=== PATIENT | female | born 1950 | race Caucasian/White ===

== ENCOUNTER 2018-04-30 12:56 | Inpatient (IN) ==
[2018-04-30] MEDS ORDERED: NS 500 ML IV ONE (13:18)
--- NOTE | 2018-04-30 13:56 | Diag Imaging Result Doc PS360 ---
EXAM: CHEST-2 VIEWS HISTORY: fever TECHNIQUE: Chest two views COMPARISON: 01/02/2018 FINDINGS: Poor inspiratory effort. The heart is not enlarged. No change in the right jugular portacatheter. No pleural effusions. Mild vascular prominence. No consolidation. IMPRESSION: No definite pneumonia. Follow-up films may be beneficial. Electronically signed by Pérez Alexander 04/30/2018 1:54 PM
[2018-04-30 14:34] LABS: BASO# 0.03 X1000 (0.0-0.2); BASO% 0.6 % (0.0-0.8); EOS# 0.07 X1000 (0.0-0.7); EOS% 1.4 % (0.0-10.0); HEMOGLOBIN 10.9 g/dL (12.0-16.0); IMM GRAN# 0.04 X1000 (0.0-0.04); IMM GRAN% 0.8 % (0.0-0.5); LYMPH% 10.1 % (20.5-51.1); MCH 27.9 PG (27-31); MCHC 30.3 g/dL (33-37); MCV 92.3 FL (81-99); MONO# 0.19 X1000 (0.11-0.59); MONO% 3.8 % (1.7-9.3); MPV 12.5 FL (7.4-10.4); NEUT# 4.12 X1000 (1.4-6.5); NEUT% 83.3 % (42.2-75.2); PLT 70 X1000 (130-400); RDW 25.6 % (11.5-14.5); WBC 4.95 X1000 (4.8-10.8)
[2018-04-30 14:45] LABS: ALB/GLOB RATIO 0.9; ALBUMIN 2.9 g/dL (3.5-5.0); CALCIUM 8.8 mg/dL (8.8-10.2); CREATININE 1.9 mg/dL (0.5-0.9); POTASSIUM 4.9 mmol/L (3.5-5.1); TOTAL BILIRUBIN 1.83 mg/dL (0.20-1.00)
[2018-04-30] MEDS ORDERED: AMBIEN PO PRN (15:21)
[2018-04-30] MEDS: ROCEPHIN 1 GM in NS 50 ML IV SCH (16:30)
[2018-04-30] MEDS: HEPARIN SUBQ SCH (16:33)
[2018-04-30] MEDS ORDERED: NEO-SYNEPHRINE IV ONE (17:38)
[2018-04-30] MEDS ORDERED: ALBUMIN 25% IV ONE (17:49)
[2018-04-30] MEDS: NEO-SYNEPHRINE 50 MG in NS 250 ML IV SCH (19:04)
--- NOTE | 2018-04-30 19:21 | HISTORY AND PHYSICAL ---
CHIEF COMPLAINT: Fever, chills, and lethargy. HISTORY OF PRESENT ILLNESS: Mrs. Barillas is a 67-year-old white female with a complex past medical history including type 2 diabetes with cirrhosis due to nonalcoholic steatohepatitis. She also has a history of hypertension, hyperlipidemia, hypothyroidism, and metastatic breast cancer. Her brought her to the emergency room this morning after she had a temperature of 101 degrees at home along with a chill during the night. She was also somewhat lethargic and slow to wake up when he got her ready to come to the emergency room. He says that yesterday and generally for the last several weeks, she has done very well at home and was wide awake, alert, and helped write and address [employer] cards yesterday. He has not noticed any other symptoms other than a fever and chills. She has had no shortness of breath, cough, or sputum production. She denies abdominal pain, nausea or vomiting. Her appetite has been good until yesterday, but greatly reduced today. She was diagnosed with cirrhosis and chronic liver disease nearly 2 years ago. She has had several upper GI endoscopies by Dr. Nichols and he has banded multiple esophageal varices on each occasion. She has a history of intermittent confusion and disorientation, felt to be hepatic encephalopathy and has taken daily lactulose and Xifaxan. Her states she has been very compliant with these recently. She has been hospitalized twice this year with left ankle fracture in December and approximately a month later, she had increasing ascites and was admitted for paracentesis. PAST MEDICAL HISTORY: 1. She underwent left mastectomy in 2009 followed by chemotherapy and radiation for positive lymph nodes. Several years later, she had a recurrence of her mediastinal and neck nodes. She is now followed by Dr. Michelet Gomez in [place], and after completing a course of Taxol and Herceptin, she remains on every 3 week Herceptin maintenance infusions. She is due for an infusion next . Her most recent PET scan was in late summer of this year and apparently showed no evidence of recurrent disease. 2. She has a history of hypertension controlled with medication. 3. Elevated cholesterol. 4. Type 2 diabetes mellitus with hemoglobin A1c that vary between 7.5 and 8.5. ALLERGIES: Penicillin causes a rash. Morphine makes her encephalopathy worse. She also has had skin reactions to certain adhesives. HOME MEDICATIONS: 1. Spironolactone 100 mg once daily. 2. Lasix 40 mg daily. 3. Levothyroxine 75 mcg daily. 4. Vitamin D3 5000 units daily. 5. Duloxetine 60 mg daily. 6. Folic acid 1 mg daily. 7. Glimepiride 1 mg daily. 8. Ambien 5 mg nightly p.r.n. for sleep. 9. Nexium 40 mg daily. 10.Lactulose 15-30 mL daily. 11.Invokana 50 mg in the morning. 12.Gabapentin 600 mg b.i.d. 13.Janumet mg tablets 1 twice a day. PAST SURGICAL HISTORY: Positive for 1. Cholecystectomy. 2. Total hysterectomy. 3. Bilateral mastectomies. 4. Lumbar spine surgery. 5. Left anterior thoracotomy with excision of benign lymph node in 2012. SOCIAL HISTORY: She is and lives with her . She does not use alcohol or tobacco. REVIEW OF SYSTEMS: General: No headache, night sweats or weight loss. HEENT: No recent complaints. Respiratory: No cough, shortness of breath, sputum production, or hemoptysis. Cardiovascular: No recent chest pain. No history of angina or ischemic heart disease. No history of congestive heart failure or valvular heart disease. GI: No recent nausea, vomiting, diarrhea, or constipation. She usually has 1-2 soft bowel movements daily with her lactulose. No melena or bright red blood per rectum. No hematemesis. : No dysuria. Neurologic: No history of strokes or seizures. Musculoskeletal: Mild stable hip and knee aches from time to time. PHYSICAL EXAMINATION: VITAL SIGNS: Temperature 99.3, pulse 122, respirations 16, blood pressure 89/59, O2 saturation 94% on room air. GENERAL: Lethargic, slightly pale, elderly woman who arouses to stimuli and responds appropriately to questions but falls back asleep when unstimulated. HEENT: Pupils are equal, round and reactive to light. Extraocular movements are intact. Oropharynx is benign with slightly tachy mucous membranes. NECK: Supple with no adenopathy, JVD, or bruits. LUNGS: Clear to auscultation bilaterally. CARDIOVASCULAR: Regular rate and rhythm with unremarkable S1, S2. No S3 or murmurs are heard. ABDOMEN: Obese, soft and nontender. The liver and spleen are not palpable. There is no caput medusa. EXTREMITIES: No edema. Toes are slightly cool but with adequate capillary refill. SKIN: Scattered telangiectasias are noted over the anterior chest and upper back, and left upper eyelid. Skin turgor is slightly reduced. NEUROLOGIC: As above. She does have slight asterixis on outstretched hands. DATA BASE: Electrolytes are unremarkable except for bicarb of 19, glucose of 125, BUN 15, creatinine 1.9 (baseline 0.9 to 1.0). Total bilirubin 1.83, albumin 2.9, SGOT 53, SGPT 31. White blood count 4900 with hemoglobin of 10.9, hematocrit 36%, platelet count 70,000. Chest x-ray is unremarkable. ASSESSMENT: 1. Fever with hypertension and altered mental status. She appears to have some sort of infection. Influenza A and B screen was negative but she could have other viruses, also bacterial infections. Urinalysis is pending. Her abdomen remains soft and nontender with minimal ascites and seems unlikely to have peritonitis. 2. Cirrhosis with mild thrombocytopenia and hepatic encephalopathy. Her acute illness has probably worsened the encephalopathy. 3. Metastatic breast cancer, apparently controlled with Herceptin. 4. Hypothyroidism, replaced. 5. Type 2 diabetes mellitus. PLAN: Will hold her metformin. She has been started on intravenous Rocephin. Will give cautious IV fluids. Since her blood pressure has not responded to one fluid bolus, I have ordered some Candelario- Synephrine and intravenous albumin. She will be admitted to the ICU. Dr. Nichols is consulted for GI assistance. She does not seem to have any GI bleeding at the present time. Her thrombocytopenia is probably related to the cirrhosis. Her relatively normal BUN is a good sign of no GI bleeding. Her is aware that she is quite critical and the prognosis remains uncertain. cc: Juan Diego Wilson MD
[2018-04-30] MEDS: NS 500 ML IV SCH ×2 (20:30→23:00)
[2018-04-30] MEDS ORDERED: NEURONTIN PO SCH (21:00)
[2018-04-30 22:38] LABS: URINE SOURCE CLEAN CATCH
[2018-04-30 22:49] LABS: BILIRUBIN URINE NEGATIVE (NEGATIVE); BLOOD URINE SMALL (NEGATIVE); COLOR YELLOW; GLUCOSE URINE >1000 mg/dL (NEGATIVE); KETONE URINE TRACE mg/dL (NEGATIVE); LEUKOCYTES URINE LARGE (NEGATIVE); NITRITE URINE NEGATIVE (NEGATIVE); PH URINE 5.5; PROTEIN URINE 50 mg/dL (NEGATIVE); TURBIDITY URINE HAZY (CLEAR); UROBILINOGEN URINE NORMAL (NORMAL)
[2018-04-30 23:19] LABS: UR EPITHELIAL CELLS <10 /HPF (<10); URINE BACTERIA 4+ /HPF; URINE RBC <10 /HPF (<10); URINE WBC TNTC /HPF (<10)
[2018-04-30] MEDS ORDERED: SOLU-MEDROL IV ONE (23:40)
[2018-04-30 23:43] LABS: URINE CASTS GRANULAR PRESENT; URINE CRYSTALS NONE SEEN; URINE SMALL ROUND CELLS NONE SEEN; URINE YEAST NONE SEEN
[2018-05-01] MEDS: XIFAXAN PO SCH ×3 (00:14→21:02)
[2018-05-01] MEDS: ATIVAN IV PRN ×6 (00:15→21:38)
[2018-05-01] MEDS: LEVAQUIN 250 MG/D5W 250 MG/50 ML IVPB IV SCH (00:20)
[2018-05-01] MEDS: NS 500 ML IV SCH ×2 (01:22→06:26)
[2018-05-01] MEDS: NEO-SYNEPHRINE 50 MG in NS 250 ML IV SCH ×4 (02:01→17:08)
[2018-05-01] MEDS: HEPARIN SUBQ SCH (03:32)
[2018-05-01 04:33] LABS: CALCIUM 7.8 mg/dL (8.8-10.2); CREATININE 2.5 mg/dL (0.5-0.9); POTASSIUM 3.7 mmol/L (3.5-5.1)
[2018-05-01] MEDS ORDERED: GEODON IM ONE ×2 (06:05→14:08)
[2018-05-01] MEDS ORDERED: STERILE WATER INJ. INJ ONE ×2 (06:05→14:08)
[2018-05-01] MEDS: SYNTHROID PO SCH (07:02)
[2018-05-01] MEDS ORDERED: VITAMIN K SUBQ ONE (07:42)
[2018-05-01 08:31] LABS: ALLEN TEST YES; BE -9.1 mmoll (-3.0-3.0); BLOOD TYPE ARTERIAL; HCO3-(ACT) 17.8 mmoll (20.0-26.0); METHB 1.2 % (0.0-1.5); O2(CT) 13.6 mL/dL (15.0-23.0); O2HB 96.1 % (95.0-99.0); PCO2(98.6) 31 mmHg (35-45); PO2(98.6) 123 mmHg (60-100); SAMPLE BLOOD; SAO2 99.4 % (95.0-100.0); THB 9.9 g/dL (11.5-17.4); pH(98.6) 7.32 (7.35-7.45)
[2018-05-01 08:33] LABS: MODALITY CANNULA
[2018-05-01] MEDS ORDERED: AMARYL PO SCH (09:00)
[2018-05-01] MEDS: ALDACTONE PO SCH (09:39)
--- NOTE | 2018-05-01 09:52 | Diag Imaging Result Doc PS360 ---
EXAM: CHEST-PORTABLE INDICATION: NGT placement TECHNIQUE: One view COMPARISON: Chest radiograph dated 04/30/2018 FINDINGS: The newly placed NG tube projects well below the diaphragm and is assumed to be in the lumen of the stomach in the expected position. Limited views of the lung bases are grossly stable. IMPRESSION: Interval placement of NG tube in expected position as described. Electronically signed by Tacos Valencia 05/01/2018 9:49 AM
[2018-05-01 09:54] LABS: BASO# 0.03 X1000 (0.0-0.2); BASO% 0.1 % (0.0-0.8); HEMATOCRIT 32.1 % (37.0-47.0); HEMOGLOBIN 9.6 g/dL (12.0-16.0); IMM GRAN# 3.21 X1000 (0.0-0.04); IMM GRAN% 11.5 % (0.0-0.5); LYMPH# 1.08 X1000 (1.2-3.4); LYMPH% 3.9 % (20.5-51.1); MCH 27.7 PG (27-31); MCHC 29.9 g/dL (33-37); MCV 92.5 FL (81-99); MONO# 2.52 X1000 (0.11-0.59); NEUT# 21.08 X1000 (1.4-6.5); NEUT% 75.5 % (42.2-75.2); PLT 73 X1000 (130-400); RBC 3.47 XMIL (4.2-5.4); RDW 26.3 % (11.5-14.5); WBC 27.92 X1000 (4.8-10.8)
[2018-05-01] MEDS: LACTULOSE PO SCH (09:56)
[2018-05-01] MEDS: FOLIC ACID PO SCH (09:57)
[2018-05-01] MEDS: NEXIUM PO SCH (09:57)
[2018-05-01] MEDS: SODIUM BICARBONATE 8.4% 150 MEQ in D5W 1,000 ML IV SCH (09:59)
[2018-05-01 10:03] LABS: BANDS 20 % (0-1); LYMPHS 4 % (21-51); SEGS 66 % (42-75)
[2018-05-01 10:04] LABS: ANISOCYTOSIS 2+; HYPOCHROM 1+; LARGE PLATELETS 1+; POIKILOCYTOSIS 1+
[2018-05-01 10:07] LABS: INR 1.83; PROTIME 22.6 Seconds (11.0-16.0)
[2018-05-01 10:46] LABS: UR CREAT RANDOM 271.2 mg/dL (11-20); UR PROT RANDOM 384.2 mg/dL
--- NOTE | 2018-05-01 13:38 | CONSULTATION ---
DATE OF CONSULTATION: 05/01/2018 REASON FOR CONSULTATION: Cirrhosis of the liver, fever, altered mental status. HISTORY OF PRESENT ILLNESS: This is a 67-year-old white female, known to our practice. She was just recently in our office on 04/10/2018. At that time, she was doing well. She had recent esophageal banding of esophageal varices on 03/07/2018. She denied any problems at her follow-up office visit. She had been taking her medications as prescribed and had denied complaints. has gone home currently, but I have spoken with family member who states she was doing well until yesterday morning. When she woke up, she had altered mental status, lethargy, and fever. She was brought in to the emergency room for further evaluation. Since admission, patient has not been alert. She has had workup and so far blood cultures are showing gram-negative rods. Her influenza screen was negative. She has had elevated BUN and creatinine and has been seen by Nephrology. A renal ultrasound has been ordered for today. Currently unable to complete review of systems except from information from the family. Patient is not alert. She is not speaking. She is somewhat agitated, moving around in the bed. PAST MEDICAL HISTORY: Hypertension, history of anemia, history of breast cancer with metastasis, depression, diabetes, cirrhosis of the liver, hypothyroidism, hypertension. PAST SURGICAL HISTORY: Last EGD in 02/2018. Cholecystectomy in 2006. Hysterectomy in 2007. ALLERGIES: Morphine causing muscle weakness. Penicillin causing a rash. Adhesive causes hives. HOME MEDICATIONS: 1. Invokana 1 tablet daily. 2. Vitamin D3 at 5000 units 3. Cymbalta 60 mg every night. 4. Nexium 40 mg every night. 5. Folic acid 1 mg every night. 6. Lasix 40 mg daily. 7. Gabapentin 2 tablets twice a day. 8. Glimepiride 2 mg daily. 9. Hydrocodone 4 times a day as needed. 10. Lactulose 1 to 2 tablespoons daily. 11. Synthroid 75 mcg daily. 12. Xifaxan 550 mg twice a day. 13. Janumet twice a day. 14. Aldactone 100 mg daily. 15. Ambien 5 mg at night as needed. SOCIAL HISTORY: No reported alcohol use. No reported tobacco use. She is a former smoker. She lives with her . FAMILY HISTORY: Ulcers in her father. GERD: Sister. Breast cancer: Mother and Aunt. Lung cancer: Father. Lupus: Sister. REVIEW OF SYSTEMS: Per history of present illness. PHYSICAL EXAMINATION: Vital Signs: Temperature 98.5, pulse 114, respirations 20, blood pressure 92/48. General: The patient is not oriented. She is moving around in the bed, somewhat agitated. HEENT: Normocephalic. Pupils equal, round, reactive to light. Respiratory: Lung sounds essentially clear. Cardiovascular: Regular rate and rhythm, tachycardic. Abdomen: Obese, soft. No tenderness is elicited. Extremities: With no lower extremity edema noted. DIAGNOSTIC RESULTS LABORATORY: Hematology: WBC 27.9, hemoglobin 9.6, hematocrit 32.1, MCV 92.5, platelets 73,000. Coagulation ProTime 22.6, INR 1.83, PTT 40.0. Chemistry: Sodium 141, potassium 3.7, chloride 103, CO2 of 16. BUN 25, creatinine 2.5, glucose 155. Calcium 7.8 , total bilirubin 1.83 AST 53, ALT 31, alkaline phosphatase 78, ammonia 76. ASSESSMENT AND PLAN: 1. Hepatic Encephalopathy, Gram negative bacteremia and sepsis seems to be the precipitating factor. 2. Renal insufficiency. 3. Bacteremia unknown source. 4. History of metastatic breast cancer. 5. Cirrhosis of the liver with portal hypertension secondary to GRANDA PLAN: Continue current management, Haldol may be better choice for agitation. Continue antibiotics and supportive care. She has been seen by nephrology. Workup in progress. Possibility of spontaneous bacterial peritonitis. Recommend diagnostic paracentesis. Continue current antibiotics. Further plans will be made according to her progress and results. I have discussed this case with Dr. Nichols. Thank you for this consultation. Dictated by BARBIE Danielle for Wil Nichols MD Pt seen in ICU A/P as above Spoke to the and sister. Pts condition is critical and prognosis is guarded. Her son is overseas now and may be getting back. Wil Nichols M.D. cc: BARBIE Mcclure MD Russell T. Barr, MD MTDD
[2018-05-01] MEDS: ROCEPHIN 1 GM in NS 50 ML IV SCH (14:48)
--- NOTE | 2018-05-01 15:11 | NEPHROLOGY CONSULTATION ---
DATE: 05/01/2018 DATE OF CONSULT: 05/01/2018. REASON FOR ADMISSION: Fever, chills and lethargy. REASON FOR CONSULT: Acute kidney injury associated with questionable hepatorenal syndrome. CONSULTING PHYSICIAN: Dr. Wilson. HISTORY OF PRESENT ILLNESS: Ms. Barillas is a 67-year-old white female who has known non alcoholic steatosis, hepatitis and cirrhosis, who has been followed by Dr. Nichols in the past. She has a history of diabetes mellitus type 2, hypertension and hypothyroidism. She is also known to have metastatic breast cancer. Her at the bedside stated that she had gone to bed and was her normal self on Monday evening. Monday she was unable to get out of bed. She had a temperature of a 101. He had called Dr. Wilson who was instructed to bring her to [facility] Emergency Department. She was lethargic upon arrival. She has had episodes of hypotension since her hospitalization and is currently on a pressor support. She has had a drop in her urinary output. She also appears to be septic. Her denies that she has had any nausea, vomiting or diarrhea. No complaints of abdominal pain. No complaints of chest pain or increased work of breathing. He states that she had gone to congregation and was her usual self, though they were exposed to people who were not well within the congregation setting. Upon evaluation, the patient does open her eyes, though she remains nonverbal. It is difficult for her to follow instructions. Her states that she does have liver disease. She has not been able to take her daily lactulose and Xifaxan. She was recently hospitalized this year with left ankle fracture in December and has had a paracentesis immediately after that, he believes sometime in January. PAST MEDICAL HISTORY: Previous history of hypertension, diabetes mellitus type 2, hypercholesterolemia, non alcoholic steatohepatitis, non alcoholic cirrhosis, metastatic breast cancer, previous ankle fracture. The patient has hypothyroidism. PAST SURGICAL HISTORY: Patient has undergone left mastectomy in 2009, chemotherapy with radiation, positive lymph nodes. She has recurrence of her mediastinal and neck nodes, to follow with Dr. Michelet Gomez in [place], completing a course of Taxol and Herceptin every 3 weeks which is scheduled this . Her most recent PET scan had indicated no evidence of recurrent disease. Cholecystectomy, total hysterectomy, bilateral mastectomies, lumbar spine surgery, left anterior thoracotomy with excision and benign lymph node in 2013. FAMILY HISTORY: Positive for fatty liver disease with the of their mother. No known kidney disease. ALLERGIES: Currently listed as penicillin, morphine and adhesives. HOME MEDICATIONS: Listed as spironolactone, Lasix, levothyroxine, vitamin D3, duloxetine, folic acid, glimepiride, Ambien, Nexium, lactulose, Invokana, gabapentin and Janumet. REVIEW OF SYSTEMS: Review of systems X 10 obtained from family at the bedside and chart. PHYSICAL EXAMINATION: Vital Signs: Her most recent vital signs: Temperature 98, blood pressure 82/57, heart rate 101, respirations are 14. She is on 2 L nasal cannula. Last recorded saturation is 93%. LABS: Sodium 141, potassium 3.7, chloride 103, CO2 16, BUN 25, creatinine 2.5, glucose 155. Her anion gap is 25, calcium 7.8. White count 4.95, hemoglobin 10.9, hematocrit 36 , platelet count 70,000. She has had 2580 in, 2350 out. She is mostly euvolemic except for her abdominal swelling. The patient does have a plasma lactate this a.m. of 11.5, 1440 in, 200 mL out to Pisano catheter. PHYSICAL EXAMINATION: General: This is a 67-year-old white female. She is very lethargic. She opens her eyes but remains nonverbal and drifts back to sleep when unstimulated. HEENT: Normocephalic, atraumatic. Conjunctiva is pale. She has TAYLOR with slight arcus senilis. Neck: Supple. Trachea midline. No JVD. Cardiovascular: She is regular rate and rhythm. She is tachycardic on the monitor. No murmur or gallop. Lungs: Decreased inspiratory effort. She remains on O2, equal excursion. Abdomen: Large, distended. Hypo bowel sounds present. She does have an ecchymotic area to her right lower quadrant. states this is secondary to Lovenox injection. Genitourinary: Pisano catheter is in place with dark link urine, minimal amount. Extremities: Have no edema to the upper and lower extremities. Neurologic: As mentioned above. ASSESSMENT AND PLAN: 1. Acute kidney injury. Multifactorial ATN. The patient has had hypotensive episodes during her hospital stay. She remains hypotensive with pressor support. We will check a renal ultrasound. We will check urine electrolytes. 2. Electrolytes. These are fairly stable. 3. Acidosis. The patient appears to have anion gap acidosis with contractional alkalosis overlying metabolic acidosis. She also presents with ketoacidosis. She has had a L of D5W with 3 amps of sodium bicarbonate ordered to start at 75 mL an hour this a.m. We will monitor. 4. Anemia. This is actually fairly stable. Patient was given a dose of vitamin K yesterday evening when she was admitted to the ICU. Dr. Nichols has been consulted. 5. Thrombocytopenia more likely is related to her cirrhosis due to her possible sepsis. I have spoken with Dr. Nichols today in regards with possible paracentesis under fluoroscopy for tap, to send peritoneal fluid for possible CBC, cell count, Gram stain. She has blood cultures currently pending. 6. Diabetic ketoacidosis. We have checked an acetone level and will check this daily. I would like to thank you for allowing us to follow with this patient. Dictated by BARBIE Hayward for Kilo Marquez MD Face to face encounter, data reviewed, discussed with Lester Mcknight on 05/01/18. I agree with the above assessment and plan of care. cc: BARBIE Hayward MD Russell T. Barr, MD MTDD
--- NOTE | 2018-05-01 16:20 | Diag Imaging Result Doc PS360 ---
EXAM: US RENAL 2 (RETROPER) COMPLETE HISTORY: decreased renal function TECHNIQUE: Renal ultrasound COMPARISON: None. FINDINGS: The right kidney measures 11.2 x 4.9 x 5.7 cm. Normal renal echogenicity and cortical thickness. No stone or hydronephrosis. No renal mass. The left kidney measures 9.5 x 4.5 x 5.4 cm. Normal renal echotexture and cortical thickness. No renal stones or hydronephrosis. There is a 2.3 cm cyst. Trace ascites is present. IMPRESSION: Normal renal ultrasound. Electronically signed by Pérez Alexander 05/01/2018 4:18 PM
[2018-05-01] MEDS ORDERED: LACTULOSE PO ONE ×2 (18:31→21:00)
[2018-05-01] MEDS: HALDOL IV PRN (19:37)
[2018-05-02] MEDS ORDERED: LASIX IV ONE (00:28)
[2018-05-02] MEDS: SODIUM BICARBONATE 8.4% 150 MEQ in D5W 1,000 ML IV SCH ×2 (00:54→19:28)
[2018-05-02] MEDS: ATIVAN IV PRN ×6 (01:55→19:57)
[2018-05-02] MEDS: NEO-SYNEPHRINE 50 MG in NS 250 ML IV SCH ×3 (02:37→11:23)
[2018-05-02 05:56] LABS: INR 1.82; PROTIME 22.5 Seconds (11.0-16.0)
[2018-05-02 07:19] LABS: CALCIUM 7.5 mg/dL (8.8-10.2); CREATININE 2.3 mg/dL (0.5-0.9); POTASSIUM 4.9 mmol/L (3.5-5.1)
[2018-05-02] MEDS: SYNTHROID PO SCH (07:38)
[2018-05-02] MEDS: HALDOL IV PRN ×5 (07:47→19:29)
[2018-05-02] MEDS: FOLIC ACID PO SCH (08:48)
[2018-05-02] MEDS: ALDACTONE PO SCH (08:48)
[2018-05-02] MEDS: XIFAXAN PO SCH ×2 (08:49→20:01)
[2018-05-02] MEDS: LACTULOSE PO SCH (08:49)
[2018-05-02] MEDS: NEXIUM PO SCH (08:49)
[2018-05-02 09:00] LABS: ALLEN TEST YES; BE -0.5 mmoll (-3.0-3.0); BLOOD TYPE ARTERIAL; HCO3-(ACT) 24.5 mmoll (20.0-26.0); O2(CT) 16.4 mL/dL (15.0-23.0); O2HB 95.7 % (95.0-99.0); PCO2(98.6) 46 mmHg (35-45); PO2(98.6) 102 mmHg (60-100); SAMPLE BLOOD; SAO2 98.4 % (95.0-100.0); THB 12.1 g/dL (11.5-17.4); pH(98.6) 7.35 (7.35-7.45)
[2018-05-02 09:01] LABS: MODALITY VENTIMASK
--- NOTE | 2018-05-02 14:50 | NEPHROLOGY PROGRESS NOTE ---
DATE: 05/02/2018 TIME SEEN: 07 SUBJECTIVE: Ms. Barillas is resting quietly in bed. She is restless though unresponsive to any tactile or painful stimuli. No purposeful movements noted. VITAL SIGNS: Temperature 98 degrees, blood pressure 96/56, heart rate 80, respirations 21. She has 50% Ventimask in place. Last saturation is 93%. She has had 3577 in, 550 out to Pisano catheter. LABORATORY DATA: Sodium 140, potassium 4.9, chloride 101, CO2 24, BUN 47, creatinine 2.3, glucose 155, anion gap 15, calcium 7.5, albumin 3. Previous white count is 27.92 with a hemoglobin of 9.6. Her pro-time is 22.5 with an INR of 1.82. Ammonia level yesterday was 76. Her plasma lactate yesterday was 11.5. DIAGNOSTIC STUDIES: Renal ultrasound showed the right kidney measuring 11.2, left measuring 9.5. PHYSICAL EXAMINATION: General: This is a 67-year-old white female who appears critically ill. She is in no acute distress. Skin: Warm and dry. HEENT: Normocephalic, atraumatic. Conjunctivae pale. She has TAYLOR with arcus senilis. Neck: Supple. Trachea midline. Unable to determine JVD due to patient's continual movement and moaning. Cardiovascular: She is regular rate and rhythm. She is tachycardic on the monitor. No specific murmur or gallop auscultated. Lungs: Decreased inspiratory effort. She remains on O2. Equal excursion. Abdomen: Large, distended. Hypo bowel sounds present. Ecchymotic area continues to the right lower quadrant. Genitourinary: Pisano catheter is in place, dark link urine. 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 Extremities: No edema. No clubbing or cyanosis. Neurological: As mentioned above. ASSESSMENT AND PLAN: 1. Acute kidney injury. ATN. The patient has been hypotensive. She continues on pressor support. Her urine output has increased with Lasix yesterday evening, with an improved creatinine of 2.3 and BUN of 47. No indications for intervention at this time. 2. Electrolytes and acid-base balance. These are fairly stable with correction of her metabolic acidosis and closing of her anion gap. 3. Anemia. This is acceptable, but low. 4. Thrombocytopenia related with cirrhosis and possible sepsis. This is being followed by Gastroenterology with Dr. Nichols planning for a paracentesis today to check for cultures of the peritoneal fluid. I would to thank you for allowing us to follow with this patient. Dictated by BARBIE Hayward for Kilo Marquez MD Face to face encounter, data reviewed, discussed with Lester Mcknight on 05/02/18. I agree with the above assessment and plan of care. cc: BARBIE Hayward MD Russell T. Barr, MD [facility] INSANEBlake
[2018-05-02] MEDS: ROCEPHIN 1 GM in NS 50 ML IV SCH (15:13)
--- NOTE | 2018-05-02 15:29 | PROGRESS NOTE ---
DATE: 05/02/2018 SUBJECTIVE: Patient is less agitated, but she is still not responding. Her sister is at the bedside. OBJECTIVE: Vital Signs: Temperature is 96.8, pulse 78, respirations 12, blood pressure 90/56. Generally: Patient is not as agitated, but is not responding and not oriented. Lung Sounds: With rhonchi noted. She is on O2 by mask. Abdomen: Distention noted. Hypoactive bowel sounds. LABORATORY: Hematology from 05/01/2018. WBC 27.92, hemoglobin 9.6, hematocrit 32.1, MCV 92.5, platelets 73. Coagulation: ProTime 22.5. INR 1.82. Chemistry: Sodium 140, potassium 4.9, chloride 101, CO2 of 24, BUN 47, creatinine 2.3, glucose 150. ASSESSMENT AND PLAN: 1. Bacteremia. 2. Hepatic encephalopathy. 3. Cirrhosis of the liver. 4. Altered mental status. 5. History of metastatic breast cancer. 6. Acute kidney injury, following with Nephrology. PLAN: Continue current management. Repeat CBC and liver function tests tomorrow. We had planned for diagnostic paracentesis, but there was not enough fluid for procedure per radiology. Continue antibiotics. Further plans will be made according to her progress. I have discussed this case with Dr. Nichols. Dictated by BARBIE Danielle for Wil Nichols MD cc: BARBIE Mcclure MD Russell T. Barr, MD
[2018-05-02] MEDS ORDERED: GEODON IM ONE (15:45)
[2018-05-02] MEDS ORDERED: STERILE WATER INJ. INJ ONE (15:45)
[2018-05-03] MEDS: LEVAQUIN 250 MG/D5W 250 MG/50 ML IVPB IV SCH (00:12)
[2018-05-03] MEDS: ATIVAN IV PRN ×3 (00:59→20:13)
[2018-05-03] MEDS: HALDOL IV PRN ×4 (01:37→19:58)
[2018-05-03] MEDS ORDERED: CALMOSEPTINE OINTMENT TOP PRN (01:42)
[2018-05-03] MEDS ORDERED: ATIVAN IV ONE (01:59)
[2018-05-03] MEDS: NEO-SYNEPHRINE 50 MG in NS 250 ML IV SCH (02:11)
[2018-05-03] MEDS ORDERED: LASIX IV ONE ×2 (03:26→21:49)
[2018-05-03] MEDS: SODIUM BICARBONATE 8.4% 150 MEQ in D5W 1,000 ML IV SCH ×2 (04:13→14:17)
[2018-05-03] MEDS: LACTULOSE PO SCH (08:12)
[2018-05-03] MEDS: FOLIC ACID PO SCH (08:13)
[2018-05-03] MEDS: ALDACTONE PO SCH (08:13)
[2018-05-03] MEDS: SYNTHROID PO SCH (08:13)
[2018-05-03] MEDS: XIFAXAN PO SCH ×2 (08:13→19:59)
[2018-05-03] MEDS: NEXIUM PO SCH (08:13)
[2018-05-03] MEDS ORDERED: DILAUDID IV ONE (08:29)
[2018-05-03] MEDS ORDERED: D50W SYRINGE IV ONE (08:39)
--- NOTE | 2018-05-03 08:40 | Diag Imaging Result Doc PS360 ---
EXAM: CHEST-1 VIEW INDICATION: congestion TECHNIQUE: One view COMPARISON: 05/01/2018 and 04/30/2018 FINDINGS: Support tubes and lines are in stable position. There has been interval worsening of pulmonary venous congestion and development of pulmonary edema centrally. There is no discrete pleural fluid collection or pneumothorax. Cardiac silhouette is stable. IMPRESSION: Interval worsening of pulmonary venous congestion and development of pulmonary edema. Electronically signed by Tacos Valencia 05/03/2018 8:38 AM
[2018-05-03 08:44] LABS: ALBUMIN 2.6 g/dL (3.5-5.0); CALCIUM 8.5 mg/dL (8.8-10.2); CREATININE 1.3 mg/dL (0.5-0.9); PHOSPHORUS 2.7 mg/dL (2.7-4.5); POTASSIUM 3.9 mmol/L (3.5-5.1)
[2018-05-03 08:47] LABS: BASO# 0.02 X1000 (0.0-0.2); BASO% 0.2 % (0.0-0.8); EOS# 0.05 X1000 (0.0-0.7); EOS% 0.4 % (0.0-10.0); HEMATOCRIT 29.5 % (37.0-47.0); HEMOGLOBIN 8.9 g/dL (12.0-16.0); IMM GRAN# 0.04 X1000 (0.0-0.04); IMM GRAN% 0.3 % (0.0-0.5); LYMPH% 6.7 % (20.5-51.1); MCH 27.6 PG (27-31); MCHC 30.2 g/dL (33-37); MCV 91.3 FL (81-99); MONO# 0.69 X1000 (0.11-0.59); MONO% 5.7 % (1.7-9.3); NEUT# 10.41 X1000 (1.4-6.5); NEUT% 86.7 % (42.2-75.2); PLT 36 X1000 (130-400); RBC 3.23 XMIL (4.2-5.4); RDW 26.1 % (11.5-14.5); WBC 12.01 X1000 (4.8-10.8)
[2018-05-03 08:52] LABS: LYMPHS 8 % (21-51); MONO 2 % (1-9); SEGS 90 % (42-75)
[2018-05-03] MEDS: PROTONIX IV SCH (09:29)
[2018-05-03] MEDS: ALBUTEROL NEB INH SCH ×3 (09:42→21:30)
--- NOTE | 2018-05-03 13:46 | NEPHROLOGY PROGRESS NOTE ---
DATE: 05/03/2018 TIME SEEN: 06 SUBJECTIVE: Ms. Barillas is resting quietly in bed. She remains unresponsive though restless. OBJECTIVE: Her most recent vital signs are temperature 97.8 degrees, blood pressure 97/56, heart rate 94, respirations are 13. She is on 100% non-rebreather. Last recorded saturation 100%. She has had 2147 in, 470 out to Pisano catheter. LABORATORY DATA: Sodium 142, potassium 3.9, chloride 99, CO2 32, BUN 48, creatinine 1.3, glucose 189. Anion gap is 11. Calcium 8.5, phosphorus 2.7, albumin 2.6. White count 12.01, hemoglobin 8.9, hematocrit 29.5 with a platelet count of 36,000. PHYSICAL EXAMINATION: General: This is a 67-year-old white female. She is resting quietly in bed. She appears chronically ill though in no acute distress. Skin: Warm and dry. HEENT: Normocephalic, atraumatic. Conjunctivae pale. She has TAYLOR. Arcus senilis is present. Mucous membranes are dry. Neck: Supple. Trachea midline. Unable to determine JVD. Cardiovascular: She is regular rate and rhythm. She is tachycardic on the monitor. No specific murmur or gallop auscultated. Lungs: Diminished breath sounds with poor inspiratory effort. Remains on O2, non- rebreather present. Abdomen: Large, distended. Hypo bowel sounds are present. Ecchymotic area continues to the right lower quadrant. Genitourinary: Pisano catheter is in place with clear link urine. Extremities: No edema. No clubbing or cyanosis. Neurological: As mentioned above. ASSESSMENT AND PLAN: 1. Acute kidney injury. More than likely this is acute tubular necrosis. Patient has been responding nicely to pressor support. Her creatinine is down to 1.3 with an improved BUN and good urine output. No indications for intervention. 2. Electrolytes and acid-base balance. These continue to slowly correct. She remains on bicarb drip. 3. Anemia. This is acceptable. 4. Thrombocytopenia. This continues low. Gastroenterology continues to monitor and follow. I would like to thank you for allowing us to follow with this patient. Dictated by BARBIE Hayward for Kilo Marquez MD Face to face encounter, data reviewed, discussed with Lester Mcknight on 05/03/18. I agree with the above assessment and plan of care. cc: BARBIE Hayward MD Russell T. Barr, MD MTDD
--- NOTE | 2018-05-03 15:47 | PROGRESS NOTE ---
DATE: 05/03/2018 SUBJECTIVE: The patient is resting comfortably finally. She has received Dilaudid on top of Ativan and Haldol and she has finally settled down and is not writhing in the bed. She does not appear to be agitated now. She remains unresponsive and visibly she appears to be breathing less frequently. OBJECTIVE: Vital Signs: Patient is afebrile, heart rate ranges between 100 to 113 per minute and regular, she is breathing between 6 to 9 per minute, her blood pressure is up to 106/64. She is off pressors now. Her abdomen is full, soft, nontender. Bowel sounds are audible. Labs reviewed which showed WBC down to 12.1, hemoglobin to 8.9, hematocrit 29.5, MCV 91.3, and platelets have gone down to 36. Sodium 142, potassium 3.9, chloride 99, bicarb 32, creatinine is down to 1.3, glucose is 189, albumin is 2.6 IMPRESSION: Urosepsis. Patient on antibiotic. Hepatic encephalopathy. The patient is less combative and less agitated because she received some medication. Cirrhosis of the liver with portal hypertension. No signs of active bleeding. Again, encephalopathy secondary to sepsis. Anemia and thrombocytopenia, all related to cirrhosis of the liver. Renal insufficiency, better. Creatinine has come down. Overall, she appears to be better in some regards, but on the other hand she remains critical and her prognosis remains guarded. From a GI perspective we need to continue supportive care, continue antibiotic, and hopefully she can turn the corner. I have discussed the case with family members who are present at bedside. I have explained to the sister the findings and the prognosis. She understands and all pertinent questions were answered. cc: MD Juan Diego oRoney MD
[2018-05-03] MEDS: ROCEPHIN 1 GM in NS 50 ML IV SCH (16:37)
[2018-05-03] MEDS ORDERED: SODIUM BICARBONATE 8.4% 150 MEQ in D5W 1,000 ML IV SCH (22:00)
[2018-05-03] MEDS: DILAUDID IV PRN (22:02)
[2018-05-04] MEDS: ALBUTEROL NEB INH SCH ×4 (02:50→21:32)
[2018-05-04] MEDS: DILAUDID IV PRN ×4 (04:07→20:50)
[2018-05-04] MEDS: SODIUM BICARBONATE 8.4% 150 MEQ in D5W 1,000 ML IV SCH (06:50)
[2018-05-04] MEDS: SYNTHROID PO SCH (06:50)
[2018-05-04] MEDS ORDERED: DILAUDID IV PRN (08:28)
[2018-05-04] MEDS ORDERED: LASIX IV ONE ×2 (08:37→20:00)
[2018-05-04] MEDS: PROTONIX IV SCH (08:57)
[2018-05-04] MEDS: XIFAXAN PO SCH ×2 (08:57→20:33)
[2018-05-04] MEDS: LACTULOSE PO SCH ×2 (08:57→20:33)
[2018-05-04 10:25] LABS: ALBUMIN 2.7 g/dL (3.5-5.0); CALCIUM 8.5 mg/dL (8.8-10.2); PHOSPHORUS 2.9 mg/dL (2.7-4.5); POTASSIUM 3.6 mmol/L (3.5-5.1)
[2018-05-04] MEDS: D5W 500 ML IV SCH (10:27)
--- NOTE | 2018-05-04 11:22 | NEPHROLOGY PROGRESS NOTE ---
DATE: 05/04/2018 SUBJECTIVE: Patient currently resting in bed unresponsive. OBJECTIVE: Vital Signs: Temperature 97.2 degrees, pulse 93, respiratory rate 8 to 12. Blood pressure 109/59. Intake 2.8 L. Output 1.7 L. General: This is an elderly female resting in bed. Critically ill-appearing, but no acute distress. HEENT: Normocephalic, atraumatic. Oral mucosa appears dry. Neck: Supple. No JVD. Cardiovascular: Regular rate and rhythm. Pulmonary: She has decreased respiratory rate with occasional deep respiratory inspiratory effort. Equal excursion. Abdomen: Distended hypoactive bowel sounds. : Pisano catheter dark urine. Extremities: No clubbing, cyanosis, edema. LAB DATA: WBC of 12.0, hemoglobin 8.9. Her creatinine was 1.3 yesterday. I have no new labs today. ASSESSMENT AND PLAN: Acute kidney injury, likely acute tubular necrosis. Her renal function had improved significantly down to 1.3 with good urine output. We have nothing further to add to this lady's case. We will sign off at this time. If we can be of further assistance , please do not hesitate to contact us. Dictated by BARBIE Murguia for Kilo Marquez MD Face to face encounter, data reviewed, discussed with Felicity Fields on 05/04/18. I agree with the above assessment and plan of care. cc: MD Juan Diego Cunha MD [facility]
--- NOTE | 2018-05-04 12:46 | Diag Imaging Result Doc PS360 ---
EXAM: CHEST-PORTABLE 05/04/2018 HISTORY: pulmonary edema TECHNIQUE: AP portable at 1236 COMMENT: There is alveolar pulmonary edema. This appears slightly improved since 05/03/2011. It is certainly worse however since 04/30/2018. IMPRESSION: Pulmonary edema. Electronically signed by Tone Zaldivar 05/04/2018 12:43 PM
[2018-05-04] MEDS: HALDOL IV PRN ×2 (13:10→15:51)
--- NOTE | 2018-05-04 13:39 | PROGRESS NOTE ---
DATE: 05/04/2018 SUBJECTIVE: The patient is currently resting. She has received sedation. Her sister and her son are at the bedside. Her son has come in from an out of country business trip in [place]. OBJECTIVE: Vital Signs: Temperature 97.7, pulse 103, blood pressure 95/62. General: The patient is calm. She is not agitated, but she is not responsive. Abdomen is soft, full, nontender. Positive bowel sounds. LABORATORY: Hematology: WBC 12.01, hemoglobin 8.9, hematocrit 29.5, MCV 91.3, platelets 36,000. Chemistry: Sodium 148, potassium 3.6, chloride 97, CO2 of 39. BUN 38, creatinine 1.0, glucose 175. Calcium 8.5. Chest x-ray ordered today showed pulmonary edema slightly worse from 04/30/2018 but improved from 05/03/2018. ASSESSMENT AND PLAN: 1. Urosepsis; on antibiotics. 2. Hepatic encephalopathy. The patient is receiving Xifaxan. We will increase her lactulose to twice a day. 3. Cirrhosis of the liver. 4. History of metastatic breast cancer. 5. Acute kidney injury; following with Nephrology. PLAN: Continue current management. Repeat labs tomorrow. Her white count has improved. Continues Xifaxan and lactulose has been increased to twice a day. We will continue to follow and further plans will be made according to her progress. I have discussed this case with Dr. Nichols. Dr. Goss will be corrections corporal over the weekend and corrections corporal for Dr. Nichols until he returns from vacation. Dictated by BARBIE Danielle for Wil Nichols MD cc: BARBIE Mcclure MD Russell T. Barr, MD
[2018-05-04] MEDS: ROCEPHIN 1 GM in NS 50 ML IV SCH (15:45)
[2018-05-04] MEDS: NITROGLYCERIN TOP SCH (15:46)
[2018-05-04] MEDS: ATIVAN IV PRN ×2 (15:52→22:26)
[2018-05-04] MEDS: LEVAQUIN 250 MG/D5W 250 MG/50 ML IVPB IV SCH (23:29)
[2018-05-05] MEDS: DILAUDID IV PRN ×6 (00:41→23:47)
[2018-05-05] MEDS: NITROGLYCERIN TOP SCH ×2 (01:22→13:03)
[2018-05-05] MEDS: ALBUTEROL NEB INH SCH ×4 (03:11→21:56)
[2018-05-05] MEDS: ATIVAN IV PRN ×4 (03:55→23:47)
[2018-05-05] MEDS: D5W 500 ML IV SCH ×2 (04:02→17:12)
[2018-05-05 05:50] LABS: BASO# 0.03 X1000 (0.0-0.2); BASO% 0.3 % (0.0-0.8); EOS# 0.14 X1000 (0.0-0.7); EOS% 1.5 % (0.0-10.0); HEMATOCRIT 29.6 % (37.0-47.0); HEMOGLOBIN 8.6 g/dL (12.0-16.0); IMM GRAN# 0.21 X1000 (0.0-0.04); IMM GRAN% 2.2 % (0.0-0.5); LYMPH# 0.68 X1000 (1.2-3.4); LYMPH% 7.1 % (20.5-51.1); MCH 27.9 PG (27-31); MCHC 29.1 g/dL (33-37); MCV 96.1 FL (81-99); MONO# 1.37 X1000 (0.11-0.59); MONO% 14.3 % (1.7-9.3); MPV 11.9 FL (7.4-10.4); NEUT# 7.17 X1000 (1.4-6.5); NEUT% 74.6 % (42.2-75.2); RBC 3.08 XMIL (4.2-5.4); RDW 25.5 % (11.5-14.5)
[2018-05-05 05:51] LABS: PLT 38 X1000 (130-400)
[2018-05-05 06:09] LABS: AGAP 10; ALB/GLOB RATIO 0.8; ALBUMIN 2.5 g/dL (3.5-5.0); ALKALINE PHOSPHATASE 98 U/L (32-104); BUN 35 mg/dL (8-22); CALCIUM 8.9 mg/dL (8.8-10.2); CHLORIDE 97 mmol/L (98-107); COSMO 308; CREATININE 0.9 mg/dL (0.5-0.9); ESTIMATED GFR > 60; GLUCOSE 232 mg/dL (70-104); GOT 66 U/L (10-30); GPT 44 U/L (10-36); SODIUM 147 mmol/L (136-145); TCO2 40 mmol/L (25-35); TOTAL BILIRUBIN 1.54 mg/dL (0.20-1.00); TOTAL PROTEIN 5.5 g/dL (6.3-8.3)
[2018-05-05] MEDS: SYNTHROID PO SCH (06:13)
[2018-05-05] MEDS: XIFAXAN PO SCH ×2 (08:02→21:15)
[2018-05-05] MEDS: LACTULOSE PO SCH ×4 (08:02→21:14)
[2018-05-05] MEDS: PROTONIX IV SCH (08:03)
[2018-05-05] MEDS: HUMULIN R SUBQ SCH ×3 (11:15→21:15)
--- NOTE | 2018-05-05 11:40 | PROGRESS NOTE ---
DATE: 05/05/2018 SUBJECTIVE: The patient is a 67-year-old, white female, who is followed by Dr. Wil Nichols. Overnight, the nurses report that the patient remains encephalopathic and agitated. She is currently receiving sedation. From a GI perspective, her ammonia level has increased as opposed to decreased despite lactulose 30 mL p.o. b.i.d. From a nutrition standpoint, she remains on Nepro 120 mL per day, which provides about 200 calories per day. Her sister and her son are at bedside. PHYSICAL EXAM: Vital Signs: Her blood pressure is 122/50, pulse 103, respirations 5, temperature is 98.5. HEENT: Negative for jaundice. Her oropharyngeal mucosal membranes are dry. She has a Ventimask in place. There is a nasogastric tube in the left naris. Pulmonary: She has coarse breath sounds with scattered rhonchi and bibasilar rales. Cardiovascular: Reveals a resting tachycardia with a regular rhythm. Abdomen: Soft with hypoactive bowel sounds. Skin: Remarkable for significant bruising and skin breakdown. Extremities: Negative for edema. OBJECTIVE DATA: Reveals a hemoglobin of 8.6 with hematocrit of 29.6 and a white count of 9.60. She has 38,000 platelets. Her ammonia is 87. Her sodium is 147, potassium 4.0, chloride 97, CO2 of 40, BUN 35, creatinine 0.9 with a glucose of 232. Calcium is 8.9, phosphorus 3.0, total bilirubin 1.54, total protein 5.5, AST 66, ALT 44, alkaline phosphatase 98, and albumin 2.5. IMPRESSION: 1. Hepatic encephalopathy. 2. Abnormal liver function tests. 3. Protein calorie malnutrition. RECOMMENDATIONS: 1. With regard to her hepatic encephalopathy, I would continue Xifaxan 550 mg p.o. b.i.d. and her lactulose. 2. I will increase the lactulose from 30 mL p.o. b.i.d. to 4 times a day for the next 48 hours in order to see if we will have a interval improvement in her ammonia level. 3. I will add zinc sulfate 220 mg p.o. daily to help the muscles metabolize the ammonia, which will hopefully also help expedite clearance of her hepatic encephalopathy. 4. From a nutrition standpoint, the current tube feedings are inadequate to meet her basal needs. Therefore, I will begin Nepro 3 cans per day given its bolus feedings. Each can should be infused over 30-45 minutes. Her target caloric intake would be 4 cans per day of Nepro. We will monitor for post feeding residuals to ensure tolerance of the tube feeding. 5. Her platelet count is 38,000, but the nurses deny reports of visible bleeding or blood in the stool despite the severe ecchymotic skin changes. We will continue to monitor this. cc: MD Juan Diego Hook MD
[2018-05-05] MEDS ORDERED: LASIX PO ONE (11:48)
[2018-05-05] MEDS ORDERED: ALDACTONE PO ONE (12:00)
[2018-05-05] MEDS ORDERED: ALDACTONE PO SCH (12:00)
[2018-05-05] MEDS: ROCEPHIN 1 GM in NS 50 ML IV SCH (14:40)
--- NOTE | 2018-05-05 15:49 | Diag Imaging Result Doc PS360 ---
EXAM: KUB ABDOMEN HISTORY: intolerance to tube feedings TECHNIQUE: Abdomen single view COMPARISON: None. FINDINGS: There is a nasogastric tube in good position overlying the stomach. The gallbladder has been removed. No bowel obstruction. No organomegaly. IMPRESSION: Negative exam. Electronically signed by Pérez Alexander 05/05/2018 3:46 PM
--- NOTE | 2018-05-05 15:54 | Diag Imaging Result Doc PS360 ---
EXAM: CHEST-PORTABLE HISTORY: poor TF tolerance, dyspnea TECHNIQUE: Portable chest single view COMPARISON: 05/04/2018 FINDINGS: Poor inspiratory effort. No change in the right-sided portacatheter or the nasogastric tube. There are dense bilateral infiltrates. These are more pronounced in the mid left lung than they were previously. The heart is mildly enlarged. IMPRESSION: Worsening infiltrates. Electronically signed by Pérez Alexander 05/05/2018 3:52 PM
[2018-05-05] MEDS: E.E.S. 200 SUSPENSION PO SCH ×2 (16:09→21:14)
[2018-05-06] MEDS: HUMULIN R SUBQ SCH ×5 (02:03→23:47)
[2018-05-06] MEDS: NITROGLYCERIN TOP SCH (02:16)
[2018-05-06] MEDS: E.E.S. 200 SUSPENSION PO SCH ×4 (02:16→21:22)
[2018-05-06] MEDS: ATIVAN IV PRN ×6 (03:13→23:47)
[2018-05-06] MEDS: DILAUDID IV PRN ×4 (03:13→20:54)
[2018-05-06] MEDS: ALBUTEROL NEB INH SCH ×4 (03:50→21:17)
[2018-05-06 04:26] LABS: ALLEN TEST YES; BE 19.2 mmoll (-3.0-3.0); BLOOD TYPE ARTERIAL; HCO3-(ACT) 39.9 mmoll (20.0-26.0); METHB 1.3 % (0.0-1.5); O2(CT) 12.5 mL/dL (15.0-23.0); O2HB 96.1 % (95.0-99.0); PO2(98.6) 161 mmHg (60-100); SAMPLE BLOOD; SAO2 99.6 % (95.0-100.0); pH(98.6) 7.29 (7.35-7.45)
[2018-05-06 04:28] LABS: MODALITY PRB; PCO2(98.6) 102 mmHg (35-45)
[2018-05-06 04:41] LABS: BASO# 0.05 X1000 (0.0-0.2); BASO% 0.4 % (0.0-0.8); EOS# 0.16 X1000 (0.0-0.7); EOS% 1.4 % (0.0-10.0); HEMATOCRIT 29.7 % (37.0-47.0); HEMOGLOBIN 8.5 g/dL (12.0-16.0); IMM GRAN# 0.45 X1000 (0.0-0.04); IMM GRAN% 3.9 % (0.0-0.5); LYMPH# 0.83 X1000 (1.2-3.4); LYMPH% 7.2 % (20.5-51.1); MCH 28.1 PG (27-31); MCHC 28.6 g/dL (33-37); MCV 98.3 FL (81-99); MONO# 1.21 X1000 (0.11-0.59); MONO% 10.5 % (1.7-9.3); MPV 12.8 FL (7.4-10.4); NEUT# 8.81 X1000 (1.4-6.5); NEUT% 76.6 % (42.2-75.2); PLT 40 X1000 (130-400); RBC 3.02 XMIL (4.2-5.4); RDW 25.4 % (11.5-14.5); WBC 11.51 X1000 (4.8-10.8)
[2018-05-06 04:45] LABS: INR 1.35; PROTIME 17.7 Seconds (11.0-16.0)
[2018-05-06 04:54] LABS: ESTIMATED GFR > 60
[2018-05-06 04:55] LABS: ESTIMATED GFR > 60
[2018-05-06 05:01] LABS: AGAP 11; AGAP 9; ALB/GLOB RATIO 0.8; ALBUMIN 2.5 g/dL (3.5-5.0); ALKALINE PHOSPHATASE 100 U/L (32-104); BUN 30 mg/dL (8-22); C REACTIVE PROT QUANT 138.13 mg/L (0.00-5.00); CALCIUM 8.7 mg/dL (8.8-10.2); CALCIUM 8.8 mg/dL (8.8-10.2); CHLORIDE 97 mmol/L (98-107); COSMO 307; COSMO 313; CREATININE 0.9 mg/dL (0.5-0.9); GLUCOSE 251 mg/dL (70-104); GOT 54 U/L (10-30); GPT 37 U/L (10-36); PHOSPHORUS 2.9 mg/dL (2.7-4.5); POTASSIUM 3.7 mmol/L (3.5-5.1); SODIUM 147 mmol/L (136-145); SODIUM 150 mmol/L (136-145); TCO2 41 mmol/L (25-35); TCO2 42 mmol/L (25-35); TOTAL BILIRUBIN 1.77 mg/dL (0.20-1.00); TOTAL PROTEIN 5.6 g/dL (6.3-8.3)
[2018-05-06] MEDS: SYNTHROID PO SCH (06:36)
[2018-05-06] MEDS ORDERED: DIAMOX GT ONE (07:41)
[2018-05-06 07:53] LABS: ANISOCYTOSIS 1+; BANDS 2 % (0-1); EOS 2 % (1-10); HYPOCHROM 1+; LYMPHS 16 % (21-51); MONO 10 % (1-9); SEGS 68 % (42-75)
[2018-05-06 08:24] LABS: ALLEN TEST YES; BE 19.9 mmoll (-3.0-3.0); BLOOD TYPE ARTERIAL; HCO3-(ACT) 40.3 mmoll (20.0-26.0); METHB 0.6 % (0.0-1.5); O2HB 90.2 % (95.0-99.0); PO2(98.6) 56 mmHg (60-100); SAMPLE BLOOD; SAO2 92.5 % (95.0-100.0); THB 9.4 g/dL (11.5-17.4); pH(98.6) 7.36 (7.35-7.45)
[2018-05-06 08:26] LABS: MODALITY BI PAP; PCO2(98.6) 86 mmHg (35-45)
[2018-05-06] MEDS: HALDOL IV PRN ×3 (08:44→17:25)
[2018-05-06] MEDS ORDERED: ZINC SULFATE PO SCH (09:00)
[2018-05-06] MEDS: LACTULOSE PO SCH ×3 (09:01→17:21)
[2018-05-06] MEDS: PROTONIX IV SCH (09:01)
[2018-05-06] MEDS: SODIUM CHLORIDE 0.9% INJ SCH (09:01)
[2018-05-06] MEDS: HUMULIN N SUBQ SCH ×2 (09:02→21:27)
[2018-05-06] MEDS: D5W 1,000 ML IV SCH ×2 (09:02→21:21)
[2018-05-06] MEDS: XIFAXAN PO SCH ×2 (09:03→21:21)
[2018-05-06] MEDS: ROCEPHIN 1 GM in NS 50 ML IV SCH (15:50)
[2018-05-06] MEDS: MAXIPIME 1 GM in NS 50 ML IV SCH (17:35)
[2018-05-06] MEDS: LASIX IV SCH (17:35)
--- NOTE | 2018-05-06 18:07 | PULMONOLOGY CONSULTATION ---
DATE: 05/06/2018 REQUESTING PHYSICIAN: Juan Diego Wilson MD. REASON FOR CONSULTATION: Respiratory failure. HISTORY OF PRESENT ILLNESS: Ms. Barillas is a [id number]-white female with metastatic breast cancer, cirrhosis of the liver with portal hypertension, and diabetes mellitus who was doing well until she developed fevers, chills and altered mental status. The patient was admitted to the hospital on 04/30/2018. Subsequent blood cultures and urine cultures were positive for e -coli which was pansensitive. Initial chest x-ray was clear. The patient has had persistent altered mental status and chest x-ray from 05/03/2018 and 05/05/2018 revealed progressive pulmonary infiltrates with consolidation. Pulmonary consultation was requested. Due to her liver disease and metastatic breast cancer, the patient has previously stated that she did not want aggressive resuscitation. PAST MEDICAL HISTORY/PROBLEM LIST: 1. Mastectomy in 2010 with positive lymph nodes at the time of surgery. She had recurrence in the mediastinum and in her cervical neck lymph nodes. She remains on Herceptin without evidence of active disease at this time. 2. Cirrhosis of the liver with portal hypertension status post banding of esophageal varices on 03/07/2018. 3. Obesity. 4. Dyslipidemia. 5. Diabetes mellitus. 6. Hypertension. 7. Hypothyroidism. 8. Status post cholecystectomy. 9. Status post hysterectomy. SOCIAL HISTORY: The patient has a prior history of tobacco use by consultants report. No alcohol use. REVIEW OF SYSTEMS: Cannot be obtained. FAMILY HISTORY: Noncontributory to current presentation. PHYSICAL EXAMINATION: General: This is a chronically ill appearing, white female who is currently on BiPAP ventilation. Vital signs: Blood pressure is 106/57, heart rate 94, respiratory rate 19 and she has been afebrile for the last 24 hours. HEENT: Pupils are round and reactive. No significant yellowing of the sclerae noted. Neck: Supple. Chest : Reveals coarse rhonchi bilaterally. Cardiac: S1, S2. Abdomen: Soft with positive bowel sounds. Extremities: Increased peripheral edema with generalized bruising of the skin. LABORATORY: Chest x-ray yesterday revealed shallow inspiration with dense bilateral infiltrates. Sodium 150, potassium 3.7, chloride 97, bicarbonate 42, BUN 30, creatinine 0.9 , ammonia level 85, C-reactive protein 138, and INR 1.35. Arterial blood gas reveals a pH of 7.36, pCO2 of 86, and pO2 of 56. Lactate is normal. IMPRESSION: 67-year-old with metastatic breast cancer, end stage liver disease with portal hypertension, and esophageal varices who has hospital acquired pneumonia and acute hypoxemic respiratory failure. The patient's arterial blood gas yesterday revealed a pCO2 of 102 consistent with hypercapnic respiratory failure as well. She has corrected her pH with BiPAP. As long as she is not significantly alkalotic, I would not recommend additional Diamox at this time. RECOMMENDATIONS: 1. Expand antibiotic coverage to include pseudomonas and hospital acquired gram- negative organisms. 2. Expand aspiration coverage with clindamycin. 3. Attempt diuresis to see if fluid is contributing to her respiratory failure. 4. Continue treatment for liver failure and hepatic encephalopathy. 5. Overall prognosis is poor. Agree with plans to allow patient to have a natural if she does not improve. cc: MD Juan Diego Aopnte MD MTDD
[2018-05-06] MEDS: CLINDAMYCIN 300 MG in NS 50 ML IV SCH (21:21)
[2018-05-06] MEDS: ZINC SULFATE PO SCH (21:21)
--- NOTE | 2018-05-06 22:24 | PROGRESS NOTE ---
DATE: 05/06/2018 SUBJECTIVE: The patient has had progressively more respiratory difficulty over the course of the day. She has had progressive pulmonary infiltrates. She is now on BiPAP and struggling with the BiPAP. She has been agitated over the course of the day. From a GI standpoint, her encephalopathy persists despite increased doses of lactulose. She is tolerating her tube feedings considerably better with minimal residuals since she was placed on oral erythromycin for presumed gastroparesis. Her family is at bedside and are extremely worried about her overall state. Her blood pressure he is 140/105, pulse 111, respirations 16, temperature of 98.4 degrees. On pulmonary exam, her breath sounds are coarse. She has a resting tachycardia. Her abdomen reveals hypoactive bowel sounds. It is soft. OBJECTIVE DATA: Reveals a hemoglobin of 8.5 with hematocrit of 29.7 and a white count of 11.5. She has 40,000 platelets. Her PT is 17.7 with an INR of 1.35. Her pH is 7.36, pCO2 of 86, PO2 of 56 on 40% FiO2 on BiPAP. Sodium is 150, potassium 3.7, chloride 97, CO2 42, BUN 30, creatinine 0.9 with a glucose of 251. Calcium is 8.8, phosphorus 2.9, total bilirubin 1.77, AST 54, ALT 37, alkaline phosphatase 100, ammonia 85, CRP 138.13, total protein 5.6 and albumin 2.5. RECOMMENDATION: 1. From a GI perspective, I would continue the lactulose. I will decrease the dose to 30 mL p.o. b.i.d. as she has had 5 bowel movements yesterday and 6 today. 2. Continue Xifaxan 550 mg p.o. b.i.d. and zinc sulfate 220 mg p.o. b.i.d. 3. Continue Nepro 3 cans per day as bolus feedings during the day. Each can should be infused over 30 to 45 minutes. 4. I updated the family regarding her GI concerns including the diagnosis of suspected gastroparesis. 5. I will continue supportive care as her liver function tests are slowly improving but her overall prognosis is very worrisome. cc: MD Juan Diego Hook MD
[2018-05-07] MEDS: LASIX IV SCH ×3 (01:03→18:19)
[2018-05-07] MEDS: DILAUDID IV PRN ×5 (01:03→22:41)
[2018-05-07] MEDS: E.E.S. 200 SUSPENSION PO SCH ×4 (02:58→19:43)
[2018-05-07] MEDS: CLINDAMYCIN 300 MG in NS 50 ML IV SCH ×3 (02:59→19:43)
[2018-05-07] MEDS: HALDOL IV PRN ×3 (03:33→21:21)
[2018-05-07] MEDS: ALBUTEROL NEB INH SCH ×4 (03:44→21:46)
[2018-05-07 04:23] LABS: ALLEN TEST YES; BLOOD TYPE ARTERIAL; HCO3-(ACT) 40.5 mmoll (20.0-26.0); O2(CT) 12.3 mL/dL (15.0-23.0); O2HB 96.2 % (95.0-99.0); PO2(98.6) 112 mmHg (60-100); SAMPLE BLOOD; SAO2 98.8 % (95.0-100.0); SRATE 18 BPM; THB 8.9 g/dL (11.5-17.4); pH(98.6) 7.45 (7.35-7.45)
[2018-05-07 04:28] LABS: MODALITY BI PAP; PCO2(98.6) 67 mmHg (35-45)
[2018-05-07] MEDS: MAXIPIME 1 GM in NS 50 ML IV SCH ×2 (05:04→18:18)
[2018-05-07] MEDS: HUMULIN R SUBQ SCH ×4 (05:05→23:22)
[2018-05-07] MEDS: D5W 1,000 ML IV SCH ×2 (06:00→18:18)
[2018-05-07] MEDS: LACTULOSE PO SCH ×3 (06:03→21:11)
[2018-05-07] MEDS: SYNTHROID PO SCH (06:03)
--- NOTE | 2018-05-07 06:39 | Diag Imaging Result Doc PS360 ---
EXAM: CHEST-PORTABLE HISTORY: respiratory failure TECHNIQUE: Portable chest single view COMPARISON: 05/05/2018 FINDINGS: The patient is rotated to the right. Poor inspiratory effort. There are dense bilateral infiltrates similar to the prior exam. Heart may be mildly prominent. No pleural effusions identified. No change in the right portacatheter. IMPRESSION: No interval improvement. Electronically signed by Pérez Alexander 05/07/2018 6:37 AM
[2018-05-07 07:04] LABS: MAGNESIUM 1.2 mg/dL (1.5-2.7); PHOSPHORUS 1.4 mg/dL (2.7-4.5)
[2018-05-07 07:07] LABS: ESTIMATED GFR > 60
[2018-05-07 07:10] LABS: AGAP 5; ALB/GLOB RATIO 0.8; ALBUMIN 2.5 g/dL (3.5-5.0); ALKALINE PHOSPHATASE 106 U/L (32-104); BUN 26 mg/dL (8-22); CALCIUM 9.2 mg/dL (8.8-10.2); CHLORIDE 97 mmol/L (98-107); COSMO 301; CREATININE 0.8 mg/dL (0.5-0.9); GLUCOSE 202 mg/dL (70-104); GOT 54 U/L (10-30); GPT 36 U/L (10-36); POTASSIUM 3.6 mmol/L (3.5-5.1); SODIUM 146 mmol/L (136-145); TCO2 44 mmol/L (25-35); TOTAL BILIRUBIN 1.33 mg/dL (0.20-1.00); TOTAL PROTEIN 5.6 g/dL (6.3-8.3)
[2018-05-07] MEDS: ZINC SULFATE PO SCH ×2 (08:10→21:11)
[2018-05-07] MEDS: XIFAXAN PO SCH ×2 (08:10→21:11)
[2018-05-07] MEDS: PROTONIX IV SCH ×2 (08:11→22:40)
[2018-05-07] MEDS: HUMULIN N SUBQ SCH ×2 (08:11→21:12)
[2018-05-07] MEDS: ATIVAN IV PRN ×3 (08:15→22:40)
--- NOTE | 2018-05-07 17:36 | PROGRESS NOTE ---
DATE: 05/07/2018 SUBJECTIVE: Patient is somewhat restless. Her son is at the bedside. He states she has received some sedation medication. She has O2 by mask in place. OBJECTIVE: Vital Signs: Temperature 97.9, pulse 111, respirations 17, blood pressure 104/64. Generally: Patient is not responsive. She is moving around in the bed somewhat agitated. She is in restraints she has had to have BiPAP placed. Currently she has O2 by mask. So far she is tolerating tube feedings. Patient was started on erythromycin for possible gastroparesis. LABORATORY: Hematology: WBC 11.51, hemoglobin 8.5, hematocrit 29.7, MCV 98.3. Chemistry: Sodium 146, potassium 3.6, chloride 97, CO2 of 44, BUN 26, creatinine 0.8, glucose 202, total bilirubin 1.33, AST 54, ALT 36, alkaline phosphatase 106. ASSESSMENT AND PLAN: 1. Hepatic encephalopathy. 2. Urosepsis. 3. Cirrhosis of the liver. 4. History of metastatic breast cancer. 5. Acute kidney injury. Following with nephrology. PLAN: Continue current management. Continue respiratory support. Continue Xifaxan and lactulose. Dr. Goss will be following in Dr. Nichols's absence. Further plans will be made according to patient's progress. Dictated by BARBIE Danielle for Wil Nichols MD cc: BARBIE Mcclure MD Russell T. Barr, MD
--- NOTE | 2018-05-07 20:14 | PROGRESS NOTE ---
DATE: 05/07/2018 SUBJECTIVE: The patient's is at bedside. He reports that she has been incredibly restless throughout the day. She has been evaluated by the nutrition support team who recommends continuous feedings given that she has had interval improvement in her gastric stasis with the initiation of erythromycin therapy for treatment of her presumed gastroparesis. She is currently tolerating 20 mL/h of Nepro. Over the weekend she has successfully tolerated 1 can 3 times a day. From a hepatic encephalopathy perspective, she continues to have good response to the lactulose. She had approximately 6 bowel movements today. Her repeat ammonia level will be obtained in the morning. PHYSICAL EXAM: On exam she is extremely agitated. Her blood pressure is 143/54, pulse of 104, respirations 16 with a temperature of 98.2 degrees. Her abdomen is soft and nondistended. She becomes easily agitated during the physical exam. OBJECTIVE DATA: Reveals a blood gas with a pH of 7.45, pCO2 67, PO2 112 on 45% FiO2. Sodium is 146, potassium 3.6, chloride 97, CO2 44, BUN 26, creatinine 0.8 with a glucose of 202. Calcium is 9.2, phosphorus 1.4, magnesium 1.2, total bilirubin 1.33, AST 54, ALT 36, alkaline phosphatase 106, total protein 5.6 and albumin 2.5. RECOMMENDATION: 1. From a GI perspective, I agree with transitioning her tube feedings to a continuous rate in an effort to advance her to goal therapy. 2. Continue erythromycin for treatment of the presumed gastroparesis. She has had significant improvement since the erythromycin was begun. 3. Continue Protonix. However, I will increase it to q.12 hours. 4. I will recheck her ammonia in the morning. 5. I defer to the primary team for management of her fluid and electrolytes. 6. Continue Xifaxan, zinc, and lactulose for treatment of her hepatic encephalopathy. 7. Additional recommendations to follow based on clinical course. cc: MD Juan Diego Rooney MD
[2018-05-07] MEDS ORDERED: POTASSIUM PHOSPHATE 30 MEQ in NS 250 ML IV ONE (21:26)
[2018-05-08] MEDS: E.E.S. 200 SUSPENSION PO SCH ×4 (01:31→19:35)
[2018-05-08] MEDS: HALDOL IV PRN ×4 (01:32→19:59)
[2018-05-08] MEDS: CLINDAMYCIN 300 MG in NS 50 ML IV SCH ×3 (02:39→19:59)
[2018-05-08] MEDS: LASIX IV SCH (02:40)
[2018-05-08] MEDS: ATIVAN IV PRN ×3 (02:40→16:24)
[2018-05-08] MEDS: DILAUDID IV PRN ×4 (02:40→19:58)
[2018-05-08] MEDS: ALBUTEROL NEB INH SCH ×4 (03:43→21:05)
[2018-05-08 04:53] LABS: INR 1.44; PROTIME 18.7 Seconds (11.0-16.0)
[2018-05-08 05:01] LABS: BASO# 0.03 X1000 (0.0-0.2); BASO% 0.4 % (0.0-0.8); EOS# 0.13 X1000 (0.0-0.7); EOS% 1.8 % (0.0-10.0); HEMATOCRIT 26.2 % (37.0-47.0); HEMOGLOBIN 7.6 g/dL (12.0-16.0); IMM GRAN# 0.34 X1000 (0.0-0.04); IMM GRAN% 4.7 % (0.0-0.5); LYMPH# 0.58 X1000 (1.2-3.4); MCH 27.4 PG (27-31); MCV 94.6 FL (81-99); MONO# 0.58 X1000 (0.11-0.59); NEUT# 5.61 X1000 (1.4-6.5); NEUT% 77.1 % (42.2-75.2); PLT 57 X1000 (130-400); RBC 2.77 XMIL (4.2-5.4); RDW 25.2 % (11.5-14.5); WBC 7.27 X1000 (4.8-10.8)
[2018-05-08 05:11] LABS: MAGNESIUM 1.2 mg/dL (1.5-2.7); PHOSPHORUS 2.8 mg/dL (2.7-4.5)
[2018-05-08 05:15] LABS: AGAP 8; ALB/GLOB RATIO 0.9; ALBUMIN 2.3 g/dL (3.5-5.0); ALKALINE PHOSPHATASE 95 U/L (32-104); BUN 24 mg/dL (8-22); CALCIUM 7.9 mg/dL (8.8-10.2); CHLORIDE 93 mmol/L (98-107); COSMO 292; CREATININE 0.8 mg/dL (0.5-0.9); ESTIMATED GFR > 60; GLUCOSE 277 mg/dL (70-104); GOT 40 U/L (10-30); GPT 31 U/L (10-36); POTASSIUM 3.2 mmol/L (3.5-5.1); SODIUM 139 mmol/L (136-145); TCO2 38 mmol/L (25-35); TOTAL BILIRUBIN 0.96 mg/dL (0.20-1.00)
[2018-05-08 05:29] LABS: C REACTIVE PROT QUANT 60.98 mg/L (0.00-5.00)
[2018-05-08] MEDS: HUMULIN R SUBQ SCH ×4 (05:30→23:35)
[2018-05-08] MEDS: MAXIPIME 1 GM in NS 50 ML IV SCH ×2 (05:31→17:34)
[2018-05-08] MEDS: D5W 1,000 ML IV SCH (05:52)
[2018-05-08] MEDS: SYNTHROID PO SCH ×2 (05:53→19:27)
--- NOTE | 2018-05-08 07:06 | PULMONOLOGY PROGRESS NOTE ---
DATE: 05/07/2018 SUBJECTIVE: Patient has periods of agitation followed by sedation. She is not conversant. She remains on a nonrebreather. OBJECTIVE: VITAL SIGNS: The patient has been afebrile for the last 24 hours. Blood pressure 104/64, heart rate 111, respiratory rate 17, oxygen saturation 94%. HEENT: Pupils are equal. Sluggish to light. Oropharynx appears dry. NECK: Supple. CHEST: Reveals scattered rhonchi bilaterally. CARDIAC: Increased rate, regular rhythm. ABDOMEN: Soft with diminished bowel sounds. EXTREMITIES: Reveal 1+ peripheral edema. LABORATORIES: Sodium 146, potassium 3.6, chloride 97, bicarbonate 44, BUN 26, creatinine 0.8. Phosphorus 1.4, magnesium 1.2, glucose 202. Arterial blood gas reveals a pH of 7.45, PCO2 of 67, PO2 of 112 on BiPAP at 45%. Chest x-ray reveals diffuse bilateral infiltrates. IMPRESSION: 67-year-old with end-stage liver disease and portal hypertension, metastatic breast cancer, pneumonia, acute hypoxemic respiratory failure, hypercapnic respiratory failure, hepatic encephalopathy. RECOMMENDATIONS: 1. Continue current antibiotic regimen. 2. Attempt to maintain an intake and output balance. 3. Continue treatment for liver failure and hepatic encephalopathy. 4. Overall prognosis appears poor with her multiorgan dysfunction. cc: MD Juan Diego Aponte MD
--- NOTE | 2018-05-08 07:38 | Diag Imaging Result Doc PS360 ---
EXAM: CHEST-PORTABLE INDICATION: respiratory failure TECHNIQUE: One view COMPARISON: 05/07/2018 FINDINGS: The right chest port is in stable position. The NG tube projects well below the diaphragm in the expected position. Bilateral infiltrates suggesting pulmonary edema +/- pneumonia are unchanged. No new consolidation is identified. Cardiac silhouette is stable. IMPRESSION: Essentially stable chest. Electronically signed by Tacos Valencia 05/08/2018 7:36 AM
[2018-05-08] MEDS: PROTONIX IV SCH ×2 (08:49→21:32)
[2018-05-08] MEDS: ZINC SULFATE PO SCH ×2 (08:49→21:32)
[2018-05-08] MEDS: XIFAXAN PO SCH ×2 (08:49→21:32)
[2018-05-08] MEDS: LACTULOSE PO SCH ×2 (08:52→21:32)
[2018-05-08] MEDS: HUMULIN N SUBQ SCH ×2 (09:16→21:32)
[2018-05-08] MEDS ORDERED: NS IV SCH (09:30)
[2018-05-08] MEDS ORDERED: D5W IV SCH (09:30)
[2018-05-08] MEDS ORDERED: MAGNESIUM SULFATE IV SCH ×2 (09:30)
[2018-05-08] MEDS: MAGNESIUM SULFATE IV SCH ×2 (10:00→10:06)
[2018-05-08] MEDS: D5W IV SCH ×2 (10:00→10:06)
--- NOTE | 2018-05-08 13:41 | PULMONOLOGY PROGRESS NOTE ---
DATE: 05/08/2018 SUBJECTIVE: The patient remains agitated. She will not respond to voice. OBJECTIVE: VITAL SIGNS: The patient has been afebrile for the last 24 hours. Blood pressure 106/52, heart rate 86, respiratory rate 15, oxygen saturation 98% on 50% FiO2. HEENT: Pupils are equal and reactive. She is not icteric. Oropharynx appears dry. NECK: Supple. CHEST: Reveals scattered rhonchi bilaterally. CARDIAC: S1, S2. ABDOMEN: Mildly distended with increased tympany. EXTREMITIES: Reveal 1+ peripheral edema. LABORATORY DATA: Sodium 139, potassium 3.2, chloride 93, bicarbonate 38, BUN 24, creatinine 0.8. Total protein 5.0. Albumin 2.3. Ammonia level 48. Magnesium 1.2. White blood count 7.27, hemoglobin 7.6, platelet count 57,000. IMAGING: Chest x-ray reveals bilateral infiltrates. They may be some marginal improvement. ASSESSMENT: A 67-year-old with end-stage liver disease, portal hypertension, metastatic breast cancer, pneumonia, acute hypoxemic respiratory failure, hypercapnic respiratory failure with hepatic encephalopathy. Her ammonia level has improved, but otherwise has had little change. RECOMMENDATIONS: 1. Continue current antibiotic regimen. 2. Agree with decreasing IV fluids. 3. Continue bronchial hygiene. 4. Continue oxygen and BiPAP as necessary. 5. Continue current resuscitation status, which is to allow the patient to have a natural if she were to sustain a cardiac arrest. cc: MD Juan Diego Aponte MD
[2018-05-08] MEDS ORDERED: NS 500 ML ONE (17:23)
[2018-05-09] MEDS: ATIVAN IV PRN ×3 (00:27→20:26)
[2018-05-09] MEDS: DILAUDID IV PRN ×6 (00:46→22:19)
[2018-05-09] MEDS: E.E.S. 200 SUSPENSION PO SCH ×4 (02:11→20:28)
[2018-05-09] MEDS: ALBUTEROL NEB INH SCH ×4 (03:19→21:04)
[2018-05-09] MEDS: HALDOL IV PRN ×3 (03:34→19:08)
[2018-05-09] MEDS: HUMULIN R SUBQ SCH ×4 (04:23→22:21)
[2018-05-09] MEDS: CLINDAMYCIN 300 MG in NS 50 ML IV SCH ×3 (04:23→20:27)
[2018-05-09] MEDS: MAXIPIME 1 GM in NS 50 ML IV SCH ×2 (04:44→17:56)
[2018-05-09 06:02] LABS: AGAP 8; ALB/GLOB RATIO 0.8; ALBUMIN 2.5 g/dL (3.5-5.0); ALKALINE PHOSPHATASE 120 U/L (32-104); BUN 24 mg/dL (8-22); CALCIUM 8.2 mg/dL (8.8-10.2); CHLORIDE 96 mmol/L (98-107); COSMO 296; CREATININE 0.8 mg/dL (0.5-0.9); ESTIMATED GFR > 60; GLUCOSE 222 mg/dL (70-104); GOT 40 U/L (10-30); GPT 32 U/L (10-36); POTASSIUM 3.3 mmol/L (3.5-5.1); SODIUM 143 mmol/L (136-145); TCO2 39 mmol/L (25-35); TOTAL BILIRUBIN 1.37 mg/dL (0.20-1.00); TOTAL PROTEIN 5.7 g/dL (6.3-8.3)
[2018-05-09] MEDS: SYNTHROID PO SCH (06:03)
--- NOTE | 2018-05-09 07:31 | Diag Imaging Result Doc PS360 ---
CHEST-PORTABLE - 05/09/2018 INDICATION: respiratory failure COMPARISON: 05/08/2018 FINDINGS: Stable right chest port and nasogastric tube in good position. Stable dense central infiltrates bilaterally. Stable severely low lung volumes. Heart size remains top normal. IMPRESSION: No change from prior. Electronically signed by Alfonso Stark 05/09/2018 7:28 AM
[2018-05-09] MEDS: XIFAXAN PO SCH ×2 (08:05→20:27)
[2018-05-09] MEDS: ZINC SULFATE PO SCH ×2 (08:05→20:27)
[2018-05-09] MEDS: HUMULIN N SUBQ SCH ×2 (08:08→20:26)
[2018-05-09] MEDS: MAGNESIUM SULFATE IV SCH (08:09)
[2018-05-09] MEDS: SODIUM CHLORIDE 0.9% INJ SCH ×2 (08:09→20:28)
[2018-05-09] MEDS: LACTULOSE PO SCH (08:09)
[2018-05-09] MEDS: PROTONIX IV SCH ×2 (08:09→20:26)
[2018-05-09] MEDS: D5W IV SCH (08:09)
[2018-05-09] MEDS: POTASSIUM CHLORIDE 10% LIQUID GT SCH ×2 (10:01→20:26)
--- NOTE | 2018-05-09 20:50 | PROGRESS NOTE ---
DATE: 05/09/2018 SUBJECTIVE: The patient continues to be agitated, unresponsive. She is moaning some. She is currently getting a bath. Her family has stepped out. OBJECTIVE: Vital signs: Temperature 99,0, pulse 91, respirations 19, blood pressure 109/48. Generally: Patient is unresponsive, but agitated. She does receive sedation as needed. She has O2 by mask. LABORATORY: Hematology from 05/08/2018: WBC 7.27, hemoglobin 7.6, hematocrit 26.2, MCV 94.6, platelets 57. Chemistry: Sodium 143, potassium 3.3, chloride 96, CO2 of 39, BUN 24, creatinine 0.8, glucose 222. Total bilirubin 1.37, AST 40, ALT 32, alkaline phosphatase 120. Ammonia level on 05/08 was 48. C-reactive protein has improved some at 60.98. ASSESSMENT AND PLAN: 1. Hepatic encephalopathy on lactulose and Xifaxan. 2. Respiratory failure, currently on O2 by mask. 3. Pneumonia, on antibiotics. 4. History of metastatic breast cancer. 5. Cirrhosis of the liver. PLAN: Continue current management. Continue antibiotics. Continued respiratory support. Continue management for hepatic encephalopathy. Dr. Goss is following in Dr. Nichols's absence. We will continue to follow and further plans to be made according to patient's progress. Dictated by BARBIE Danielle for Wil Nichols MD cc: BARBIE Mcclure MD Russell T. Barr, MD
[2018-05-10] MEDS: ATIVAN IV PRN ×6 (02:01→22:31)
[2018-05-10] MEDS: HALDOL IV PRN ×4 (02:01→20:25)
[2018-05-10] MEDS: E.E.S. 200 SUSPENSION PO SCH ×4 (02:02→20:09)
[2018-05-10] MEDS: ALBUTEROL NEB INH SCH ×4 (03:30→21:34)
[2018-05-10] MEDS: CLINDAMYCIN 300 MG in NS 50 ML IV SCH ×3 (03:54→20:09)
[2018-05-10] MEDS: DILAUDID IV PRN ×5 (03:54→23:11)
[2018-05-10] MEDS: MAXIPIME 1 GM in NS 50 ML IV SCH ×2 (04:46→16:49)
[2018-05-10] MEDS: HUMULIN R SUBQ SCH ×4 (04:46→23:59)
[2018-05-10 05:38] LABS: BASO# 0.03 X1000 (0.0-0.2); BASO% 0.4 % (0.0-0.8); EOS# 0.14 X1000 (0.0-0.7); EOS% 1.8 % (0.0-10.0); HEMATOCRIT 31.9 % (37.0-47.0); HEMOGLOBIN 9.2 g/dL (12.0-16.0); IMM GRAN# 0.12 X1000 (0.0-0.04); IMM GRAN% 1.5 % (0.0-0.5); LYMPH# 0.46 X1000 (1.2-3.4); LYMPH% 5.9 % (20.5-51.1); MCH 27.9 PG (27-31); MCHC 28.8 g/dL (33-37); MCV 96.7 FL (81-99); MONO# 0.53 X1000 (0.11-0.59); MONO% 6.8 % (1.7-9.3); MPV 12.2 FL (7.4-10.4); NEUT# 6.54 X1000 (1.4-6.5); NEUT% 83.6 % (42.2-75.2); PLT 78 X1000 (130-400); RDW 24.4 % (11.5-14.5); WBC 7.82 X1000 (4.8-10.8)
[2018-05-10 06:02] LABS: AGAP 8; CHLORIDE 96 mmol/L (98-107); POTASSIUM 4.1 mmol/L (3.5-5.1); SODIUM 141 mmol/L (136-145); TCO2 37 mmol/L (25-35)
[2018-05-10 06:03] LABS: ALB/GLOB RATIO 0.8; ALBUMIN 2.5 g/dL (3.5-5.0); ALKALINE PHOSPHATASE 121 U/L (32-104); BUN 24 mg/dL (8-22); CALCIUM 8.5 mg/dL (8.8-10.2); COSMO 295; CREATININE 0.7 mg/dL (0.5-0.9); ESTIMATED GFR > 60; GLUCOSE 279 mg/dL (70-104); GOT 37 U/L (10-30); GPT 31 U/L (10-36); MAGNESIUM 2.1 mg/dL (1.5-2.7); TOTAL BILIRUBIN 1.02 mg/dL (0.20-1.00); TOTAL PROTEIN 5.8 g/dL (6.3-8.3)
[2018-05-10] MEDS: SYNTHROID PO SCH (06:33)
--- NOTE | 2018-05-10 07:45 | Diag Imaging Result Doc PS360 ---
EXAM: CHEST-PORTABLE 05/10/2018 HISTORY: respiratory failure TECHNIQUE: AP portable at 0515 COMMENT: There is pulmonary edema versus pneumonia. The inspiration is less optimal than on 05/09/2018 and the pulmonary opacities appear worse. There is an NG tube with its tip over the diaphragm. IMPRESSION: Apparent worsening of pulmonary edema. Electronically signed by Tone Zaldivar 05/10/2018 7:43 AM
--- NOTE | 2018-05-10 08:19 | PULMONOLOGY PROGRESS NOTE ---
DATE: 05/09/2018 SUBJECTIVE: The patient remains agitated. She has no increased work of breathing. OBJECTIVE: VITAL SIGNS: The patient has been afebrile for the last 24 hours. Blood pressure 119/58, heart rate 94, respiratory rate 20, and oxygen saturation 100% on 60% face mask. HEENT: The pupils are equal and reactive. There is some crusting around the eyelids. The oropharynx appears dry. NECK: Supple. CHEST: Reveals coarse rhonchi bilaterally. CARDIAC: S1, S2. ABDOMEN: Soft with diminished bowel sounds. EXTREMITIES: Reveal 1+ peripheral edema. LABORATORY DATA: Sodium 143, potassium 3.3, chloride 96, bicarbonate 39, BUN 24, creatinine 0.8. Chest x-ray reveals bilateral infiltrates with marginal improvement over the last four days. IMPRESSION: A 67 year old with end-stage liver disease, portal hypertension, metastatic breast cancer, pneumonia, acute hypoxemic respiratory failure, hypercapnic respiratory failure, and hepatic encephalopathy. She has had marginal improvement in chest x-ray. RECOMMENDATIONS: 1. Continue broad-spectrum antibiotics. 2. Continue bronchial hygiene. 3. Cycle oxygen and BiPAP p.r.n. 4. Continue current resuscitation status, allow natural . cc: MD Juan Diego Aponte MD
[2018-05-10] MEDS: D5W IV SCH (08:25)
[2018-05-10] MEDS: HUMULIN N SUBQ SCH ×2 (08:25→20:27)
[2018-05-10] MEDS: PROTONIX IV SCH ×2 (08:25→20:09)
[2018-05-10] MEDS: SODIUM CHLORIDE 0.9% INJ SCH ×2 (08:25→20:09)
[2018-05-10] MEDS: MAGNESIUM SULFATE IV SCH (08:25)
[2018-05-10] MEDS: POTASSIUM CHLORIDE 10% LIQUID GT SCH ×2 (08:26→20:08)
[2018-05-10] MEDS: ZINC SULFATE PO SCH ×2 (08:26→20:08)
[2018-05-10] MEDS: XIFAXAN PO SCH ×2 (08:26→20:08)
[2018-05-10] MEDS: LASIX IV SCH ×2 (14:42→20:09)
--- NOTE | 2018-05-10 15:36 | PROGRESS NOTE ---
DATE: 05/10/2018 SUBJECTIVE: Patient is resting a little better today. She is less agitated, but still unresponsive. Chest x-ray showed worsening of pulmonary edema. OBJECTIVE: Vital Signs: Temperature 99.6 degrees, pulse 93, respirations 23, blood pressure 116/41. General: The patient is unresponsive, but not as restless. She has received sedation medication. Respiratory: Lung sounds with coarse rhonchi. LABORATORY: Hematology: WBC 7.82, hemoglobin 9.2, hematocrit 31.9, MCV 96.7, platelets 78. Chemistry: Sodium 141, potassium 4.1, chloride 96, CO2 37. BUN 24, creatinine 0.7, glucose 279. Total bilirubin 1.02, AST 37, ALT 31, alkaline phosphatase 121. ASSESSMENT AND PLAN: 1. Hepatic encephalopathy. 2. Pneumonia. 3. End-stage liver disease. 4. History of metastatic breast cancer. PLAN: Continue current management. Continue antibiotics. Continue respiratory management. Continue medications for hepatic encephalopathy. Dr. Goss will continue to follow in Dr. Nichols's absence. Further plans will be made as needed. I have discussed this case with Dr. Goss. Dictated by BARBIE Danielle for Wil Nichols MD cc: BARBIE Mcclure MD Russell T. Barr, MD
--- NOTE | 2018-05-10 15:39 | PULMONOLOGY PROGRESS NOTE ---
DATE: 05/10/2018 SUBJECTIVE: The patient cycles between sedation and overt agitation. OBJECTIVE: The patient maximum temperature in the last 24 hours 99.9 degrees. Blood pressure 145/62. Heart rate 96. Respiratory rate 19. Oxygen saturation 99% on 80% FIO2. HEENT: Pupils are equal and reactive. Oropharynx is clear but dry. Neck is supple. Chest reveals coarse rhonchi bilaterally, which do have an audible component. Cardiac exam: S1, S2. Abdomen: Soft with diminished bowel sounds. Extremities: Reveal increased tissue edema. LABORATORY: Chest x-ray reveals increasing infiltrates, edema bilaterally. Sodium 141, potassium 4.1, chloride 96, bicarbonate 37, BUN 24, creatinine 0.7, glucose 279, bilirubin 1.02, Alkaline phosphatase 121. White blood count 7.82, hemoglobin 9.2, platelet count 78,000. Arterial blood gas not performed today. IMPRESSION: A 67-year-old with: 1. End stage liver disease. 2. Pneumonia. 3. Acute hypoxemic and hypercapnic respiratory failure. 4. Portal hypertension. 5. Metastatic breast cancer. 6. Hepatic encephalopathy. Although chest x-ray yesterday looked marginally improved, it looks worse today. She has audible rhonchi and is not clearing her secretions. RECOMMENDATIONS: 1. Continue broad spectrum antibiotics. 2. Continue bronchial hygiene. 3. Continue to cycle oxygen and BIPAP. 4. Patient's prognosis is poor. Her son and sister are at the bedside and are aware that she may not survive this hospital stay. Comfort measures are in place. Code status has been discussed and is to allow patient to have a natural if she does not improve. cc: MD Juan Diego Aponte MD [facility] HOSPITALBlake
--- NOTE | 2018-05-10 17:50 | CONSULTATION ---
DATE OF CONSULTATION: 05/10/2018 HISTORY OF PRESENT ILLNESS: Ms. Barillas is 67 years old and there is reported persistent poor responsiveness. History from review of hospital chart and from attentive family at the bedside is that she has baseline forgetfulness, which is significant, probably progressing over at least a few years. She has diabetic neuropathy with unsteady gait, tendency to fall, to the point she depends on wheelchair most of the time now. She has never had diagnosed stroke, serious head injury, seizure, other definite brain event. She has longstanding nonalcoholic cirrhosis. There is past history of left mastectomy for cancer followed by chemotherapy and radiation, and then documented recurrence in mediastinal and cervical lymph nodes, and she is now continuing treatment for that problem. This time, she was admitted 10 days ago with hypotension, trouble maintaining alertness, but reported to answer questions on presentation. According to staff and family, she has not communicated verbally in at least several days. She is sometimes restless, moving all limbs , reaching the point that sedation was required to prevent harm. During those restless times, she was not attentive and did not respond or communicate. At other times, she appears to be sleeping and is difficult to get alert. LABORATORY DATA: Recent lab shows WBC count 7820, persistent anemia. Mildly elevated BUN, which is improved compared to earlier. Moderately elevated blood sugars, which are not much different now than baseline. We do not have urine toxicology screen this admission, but prior screen 01/02/2018 was all negative. DIAGNOSTIC STUDIES: We do not have brain imaging reported this admission. Noncontrast CT of the head dated 01/02/2018 was reported unremarkable. MEDICATIONS: Current medicines include haloperidol 1.5 mg 3 to 4 doses daily in recent days, hydromorphone 0.5 mg 8 doses in the last 36 hours, lorazepam 2 mg 6 doses in the last 36 hours. Family reports home medicines include zolpidem and attempts to reduce that have not been successful. PHYSICAL EXAMINATION: Vital Signs: She has been afebrile this admission. Recent blood pressures recorded as low as 98/66 and 85/64 overnight, but mostly 120s-140s systolic. Neurologic: On exam, she is in the right lateral position, breathing spontaneously, not moving initially. She had minimal withdrawal with noxious stimulation over the feet. She did not communicate or respond to me. She did not speak. She did not appear to regard me or fix her gaze on me. She has full lateral eye movement with passive head turning. Pupils are equal, round and react briskly to bright light. Corneal reflex is present bilaterally. Facial motility is diminished, but symmetric. Limb tone is symmetric. Plantar response is silent bilaterally. Reflexes are absent at the knees, not tested at the bandaged ankles. Neck: Supple. Head: Unremarkable. IMPRESSION: Global encephalopathy, uncertain etiology, likely multifactorial. There may be contribution from sedating medicines now. She has a baseline cognitive impairment syndrome, which predisposes her to more protracted and deeper encephalopathy with any toxic or metabolic disturbance. There was hope that encephalopathy would improve with the resolution of her hyperammonemia (ammonia 103 in December, earlier this admission, high normal at 48 two days ago), but, at least thus far, that does not appear to be the case. RECOMMENDATIONS: I do not have any urgent suggestion. I think EEG would be reasonable to make sure she is not having subclinical seizure. Brain imaging would be reasonable, when practical, but is not urgent and likely would not change her management today. In light of the baseline cognitive impairment, we may still be dealing with a protracted encephalopathy associated with her hepatic failure and, in that case, time will tell. I do not have any good suggestions. Of course, would try to limit sedatives as much as possible, as you are doing. I expect the EEG will show generalized slowing and possibly triphasic waves, but probably will not document subclinical seizure, and I will not have any other suggestion right now. I have encouraged family to be patient and they seem to accept that. Thanks for asking Neurology to see Ms. Barillas. cc: MD Juan Diego Dominguez III, MD MTDD
--- NOTE | 2018-05-10 18:58 | PROGRESS NOTE ---
DATE: 05/10/2018 SUBJECTIVE: ICU Bed #5. Ms. Barillas has gotten a little bit more restless as sedatives wear off. There is anisocoria now, left pupil about 3 mm larger than the right, but both pupils definitely and consistently react to bright light. Extraocular movements continue present with head turning. Her EEG showed generalized slowing at low amplitude across the hemispheres symmetrically without epileptiform discharge or other evidence of seizure. I discussed the situation with son at the bedside very frankly. Brain imaging would be interesting, but problematic in that level of sedation required to get a good scan would likely delay her potential recovery. Also, findings on scan would likely not change current management. We discussed possibility that she might have ischemic change and/or metastatic disease, although I see evidence of neither of these clinically. We might consider brain imaging later. No other suggestions right now. Thanks again for asking Neurology to see Ms. Barillas. cc: MD Juan Diego Dominguez III, MD MTDBlake
[2018-05-10] MEDS: LACTULOSE PO SCH (20:08)
--- NOTE | 2018-05-11 01:48 | EEG REPORT ---
DATE: 05/10/2018 IDENTIFYING DATA: EEG number [id number] done on 05/10/2018. COMMENT: This is a digitally recorded EEG on a 67-year-old patient with multiple chronic morbidities now in the ICU with apparent hepatic encephalopathy, persistent poor responsiveness, question of subclinical seizure. There is reported to be baseline memory failure. FINDINGS: During waking, low amplitude polymorphic and rhythmic theta frequencies are prominent across both hemispheres. There is occasional slowing into the delta range frontally. Portions of the record are obscured by muscle contraction and head movement but, overall, interpretation is not hindered. There was no change in response to photic stimulation. Hyperventilation could not be done. There was no spontaneous variation to correlate with drowsing or sleep. No definite epileptiform discharge was identified. INTERPRETATION: Abnormal EEG because of generalized slowing. CORRELATION: This is indicative of a diffuse encephalopathy and is nonspecific. The absence of epileptiform discharges does not exclude a clinical diagnosis of seizure, but there is nothing on this record to suggest subclinical seizure as the reason for her persistent poor responsiveness. cc: MD Juan Diego Dominguez III, MD MTDD
[2018-05-11] MEDS: LASIX IV SCH (02:26)
[2018-05-11] MEDS: E.E.S. 200 SUSPENSION PO SCH ×4 (02:36→22:10)
[2018-05-11] MEDS: ALBUTEROL NEB INH SCH ×4 (03:45→20:05)
[2018-05-11] MEDS: CLINDAMYCIN 300 MG in NS 50 ML IV SCH ×3 (04:37→22:09)
[2018-05-11] MEDS ORDERED: NS 50 ML ONE ×2 (05:41→05:42)
[2018-05-11] MEDS: MAXIPIME 1 GM in NS 50 ML IV SCH ×2 (05:42→16:58)
[2018-05-11] MEDS: HUMULIN R SUBQ SCH ×3 (05:54→17:00)
[2018-05-11] MEDS: ATIVAN IV PRN (06:20)
[2018-05-11] MEDS: SYNTHROID PO SCH (07:02)
--- NOTE | 2018-05-11 07:24 | Diag Imaging Result Doc PS360 ---
EXAM: CHEST-PORTABLE INDICATION: respiratory failure TECHNIQUE: One view COMPARISON: 05/10/2018 FINDINGS: Support tubes and lines are in stable positions. Diffuse consolidations suggesting edema are unchanged. Inspiration is suboptimal, stable. No new consolidation is identified. Cardiac silhouette is stable. IMPRESSION: Stable chest. Electronically signed by Tacos Valencia 05/11/2018 7:21 AM
[2018-05-11 07:32] LABS: AGAP 4; ALB/GLOB RATIO 0.8; ALBUMIN 2.7 g/dL (3.5-5.0); ALKALINE PHOSPHATASE 134 U/L (32-104); BUN 28 mg/dL (8-22); CALCIUM 8.4 mg/dL (8.8-10.2); CHLORIDE 98 mmol/L (98-107); COSMO 300; CREATININE 0.8 mg/dL (0.5-0.9); ESTIMATED GFR > 60; GLUCOSE 296 mg/dL (70-104); GOT 36 U/L (10-30); GPT 31 U/L (10-36); POTASSIUM 4.7 mmol/L (3.5-5.1); SODIUM 142 mmol/L (136-145); TCO2 40 mmol/L (25-35); TOTAL BILIRUBIN 1.15 mg/dL (0.20-1.00); TOTAL PROTEIN 6.3 g/dL (6.3-8.3)
[2018-05-11] MEDS: DILAUDID IV PRN ×2 (08:04→16:19)
[2018-05-11] MEDS: LACTULOSE PO SCH (08:05)
[2018-05-11] MEDS: PROTONIX IV SCH ×2 (08:05→22:08)
[2018-05-11] MEDS: D5W IV SCH (08:10)
[2018-05-11] MEDS: ZINC SULFATE PO SCH ×2 (08:10→22:10)
[2018-05-11] MEDS: MAGNESIUM SULFATE IV SCH (08:10)
[2018-05-11] MEDS: HUMULIN N SUBQ SCH ×2 (08:11→22:48)
[2018-05-11] MEDS: XIFAXAN PO SCH ×2 (08:11→22:09)
[2018-05-11] MEDS: HALDOL IV PRN ×3 (08:29→22:33)
--- NOTE | 2018-05-11 11:46 | PROGRESS NOTE ---
DATE: 05/11/2018 Ms. Barillas had further restlessness requiring sedation. Her haloperidol dose was reduced to 2.5 mg, with 2 doses in the last 12 hours. Hydromorphone has increased to 1 mg dose, 2 doses in the last 12 hours. Lorazepam continues 2 mg, with 5 doses in the last 24 hours. At this time, she is supine, not moving, appears to be sleeping quietly. In light of her periods of agitated state, I did not attempt to wake her. I reviewed the EEG finding with son and sister at the bedside. I discussed the frequent difficulty encountered in managing demented patients with sedating medicines. I do not have anything new to recommend today. Thanks for asking Neurology to see Ms. Barillas. cc: MD Juan Diego Dominguez III, MD
--- NOTE | 2018-05-11 13:17 | PROGRESS NOTE ---
DATE: 05/11/2018 SUBJECTIVE: Patient is with eyes closed. Nonresponsive. Family is at the bedside. Patient has had evaluation by Neurology. OBJECTIVE: Vital Signs: Temperature 98.9 degrees, pulse is 90, respirations 16, blood pressure 96/46. General: Apparently, patient is unresponsive. Respiratory: Lung sounds with crackles bilaterally. Abdomen: Soft. Positive bowel sounds. LABORATORY: Hematology: WBC 7.82, hemoglobin 9.2, hematocrit 31.9, platelets 78. Chemistry: Sodium 142, potassium 4.7, chloride 98, CO2 40. BUN 28, creatinine 0.8, glucose 296. IMAGING: Chest x-ray today showed stable chest with diffuse consolidation suggesting edema that is unchanged. ASSESSMENT AND PLAN: 1. Hepatic encephalopathy. 2. End-stage liver disease. 3. Pneumonia. 4. History of metastatic breast cancer. PLAN: Continue current management. Continue antibiotics. Continue respiratory management. Dr. Goss will be following today, and Dr. Daniels will be mobile web application developer over the weekend, I have discussed this case with Dr. Goss. Dictated by BARBIE Danielle for Wil Nichols MD cc: BARBIE Mcclure MD Russell T. Barr, MD
--- NOTE | 2018-05-11 18:36 | PROGRESS NOTE ---
DATE: 05/11/2018 DATE OF ROUNDS: 05/11/2018. SUBJECTIVE: The patient remains obtunded and agitated. Her ammonia has normalized and her lactulose is now on hold. From a GI standpoint, she is currently tolerating her tube feedings, but is having copious amounts of liquid brown stool. Her C diff analysis has been negative. PHYSICAL EXAMINATION: Vital Signs: Her blood pressure is 111/65, pulse 95, respiration 15. Her temp is 98.9. The patient became extremely agitated as I attempted to perform a physical exam. Therefore, her exam was deferred. OBJECTIVE DATA: Reveals serum chemistries from this morning. Her sodium is 142, potassium 4.7, chloride 98, CO2 40, BUN 28, creatinine 0.8 with a glucose of 296. Calcium is 84, total bilirubin 1.15, AST 36, ALT 31, alkaline phosphatase 134, total protein 6.3 and albumin 2.7. RECOMMENDATION: 1. I will continue her tube feedings. She is currently receiving Glucerna 1.5 at 40 mL/h with 60 mL of water flushes every 6 hours. 2. Continue Protonix 40 mg IV q.12 hours. 3. Continue Xifaxan 550 mg p.o. b.i.d. 4. Continue zinc 220 mg p.o. b.i.d. 5. Review of her med list reveals that her lactulose has been resumed. I will discontinue it given the copious amounts of diarrhea that the patient is having. 6. If her diarrhea persists after discontinuing the lactulose, it would be reasonable to repeat stool studies for C difficile toxin. cc: MD Juan Diego Hook MD Khurshid Yousuf, MD
[2018-05-12] MEDS: DILAUDID IV PRN ×5 (00:13→21:07)
[2018-05-12] MEDS: HUMULIN R SUBQ SCH ×4 (00:20→17:30)
[2018-05-12] MEDS: E.E.S. 200 SUSPENSION PO SCH ×2 (02:26→08:38)
[2018-05-12] MEDS: CLINDAMYCIN 300 MG in NS 50 ML IV SCH ×3 (03:11→21:24)
[2018-05-12] MEDS: ALBUTEROL NEB INH SCH ×4 (03:42→19:17)
[2018-05-12] MEDS: MAXIPIME 1 GM in NS 50 ML IV SCH ×2 (04:51→16:06)
[2018-05-12] MEDS: HALDOL IV PRN ×4 (05:08→21:07)
[2018-05-12 05:13] LABS: BASO# 0.07 X1000 (0.0-0.2); BASO% 0.7 % (0.0-0.8); EOS# 0.11 X1000 (0.0-0.7); EOS% 1.1 % (0.0-10.0); HEMOGLOBIN 8.5 g/dL (12.0-16.0); IMM GRAN# 0.06 X1000 (0.0-0.04); IMM GRAN% 0.6 % (0.0-0.5); MCH 27.9 PG (27-31); MCHC 28.3 g/dL (33-37); MCV 98.4 FL (81-99); MONO# 0.63 X1000 (0.11-0.59); MONO% 6.3 % (1.7-9.3); MPV 12.1 FL (7.4-10.4); NEUT# 8.65 X1000 (1.4-6.5); NEUT% 86.3 % (42.2-75.2); PLT 91 X1000 (130-400); RBC 3.05 XMIL (4.2-5.4); RDW 24.2 % (11.5-14.5); WBC 10.02 X1000 (4.8-10.8)
[2018-05-12 05:24] LABS: AGAP 5; ALB/GLOB RATIO 0.8; ALBUMIN 2.7 g/dL (3.5-5.0); ALKALINE PHOSPHATASE 120 U/L (32-104); BUN 32 mg/dL (8-22); CHLORIDE 97 mmol/L (98-107); COSMO 295; CREATININE 0.7 mg/dL (0.5-0.9); ESTIMATED GFR > 60; GLUCOSE 189 mg/dL (70-104); GOT 39 U/L (10-30); GPT 28 U/L (10-36); POTASSIUM 4.6 mmol/L (3.5-5.1); SODIUM 142 mmol/L (136-145); TCO2 40 mmol/L (25-35); TOTAL BILIRUBIN 1.09 mg/dL (0.20-1.00)
[2018-05-12] MEDS: SYNTHROID PO SCH (06:28)
--- NOTE | 2018-05-12 07:11 | Diag Imaging Result Doc PS360 ---
CHEST-PORTABLE - 05/12/2018 INDICATION: respiratory failure COMPARISON: 05/11/2018 FINDINGS: Stable chest port and nasogastric tube. There is no change in the diffuse bilateral central mixed infiltrates. Heart size is top normal. No pneumothorax or large pleural effusion. IMPRESSION: No change in the bilateral diffuse infiltrates. Electronically signed by Alfonso Stark 05/12/2018 7:08 AM
[2018-05-12] MEDS: ATIVAN IV PRN (08:32)
[2018-05-12] MEDS: PROTONIX IV SCH ×2 (08:33→21:07)
[2018-05-12] MEDS: ZINC SULFATE PO SCH ×2 (08:36→21:08)
[2018-05-12] MEDS: XIFAXAN PO SCH ×2 (08:36→21:08)
[2018-05-12] MEDS: MAGNESIUM SULFATE IV SCH (08:36)
[2018-05-12] MEDS: D5W IV SCH (08:36)
[2018-05-12] MEDS: HUMULIN N SUBQ SCH ×2 (08:37→21:24)
[2018-05-12] MEDS: NS 500 ML IV ONE ×2 (08:40→11:38)
[2018-05-12] MEDS: ALDACTONE GT SCH ×2 (09:43→21:08)
--- NOTE | 2018-05-12 20:04 | PROGRESS NOTE ---
DATE: 05/12/2018 SUBJECTIVE: Resting in bed. She is obtunded, her family present bedside, I spoke with patient's son and her sister, according the nursing staff no major events. She is on tube feeds well. Her stool has become solidified, she had 1 soft bowel movement today, no blood was noted.Vitals: Temperature 97.6, pulse 75, respiratory rate of 9, blood pressure 119/56, saturating 100% on non- rebreather 15 L/minute of oxygen. I's and O's positive balance of 446. General appearance: Moderate built, moderate nourished lying in bed currently obtunded. She is on non-rebreather mask. HEENT: Pale conjunctive, positive pallor, no icterus. Face mask non-rebreather on place. Neck: Is supple. Abdomen: Is protuberant, positive ascites, no guarding. Extremities: No cyanosis, clubbing. Neuro: She is obtunded. LABS: Her hemoglobin and hematocrit 8.5 and 30, white count of 10.02, platelet count of 91,000, sodium 142, potassium 4.6, chloride 97, bicarb of 45, BUN of 32, creatinine 0.7, glucose of 173, calcium is 9, total bilirubin is 1.09, AST 39, ALT 28, alkaline phos 120, total protein is 6, albumin of 2.7, ammonia 56. Cultures, urine culture from 05/01 showed E coli. C difficile toxin was negative on 05/08. Blood culture on 04/30 showed E coli. Chest x-ray done today showed no change in the bilateral diffuse infiltrates and stable chest port and nasogastric tube, heart size is top normal. IMPRESSION AND PLAN: 1. Liver cirrhosis secondary to fatty liver disease complicated with thrombocytopenia, hypoalbuminemia, hepatic encephalopathy, ascites, mild coagulopathy who was admitted with urosepsis. In this regard we will continue on the current management plan in the form of antibiotics with cefepime, IV fluids at 42 mL/h, will continue on her Xifaxan 550 mg p.o. b.i.d. and continue to watch her liver enzymes. 2. Ascites. Will continue to watch for now. Will restrict the fluids to less than 1.5 L 24 hours. She will continue on tube feedings for malnutrition. 3. Gastrointestinal prophylaxis proton pump inhibitors. 4. Anemia. Will start on iron supplementation through the NG tube. 5. Pneumonia and urinary tract infection. She is on antibiotics with clindamycin and cefepime. 6. History of metastatic breast cancer aware. 7. Diabetes on sliding scale insulin and insulin NPH. 8. Change in mental status partly from sepsis, hepatic encephalopathy . She is on Ativan and Haldol per the primary care team. If patient's ascites got worse then she may need ultrasound- guided paracentesis. 9. The above plans discussed the patient's family at bedside and all questions answered. Please call with further questions. cc: MD Juan Diego Harmon MD
[2018-05-12] MEDS ORDERED: LACTULOSE PO ONE (21:00)
--- NOTE | 2018-05-12 23:05 | PROGRESS NOTE ---
DATE: 05/08/2018 SUBJECTIVE: The patient's is at bedside and expresses his concern about the patient's overall progress. She remains obtunded. Today, she is having a fair amount of diarrhea on the lactulose. However, her repeat ammonia level was not drawn. The nurses report that she has tolerated her tube feedings with the addition of erythromycin and report low residuals. PHYSICAL EXAMINATION: Vital Signs: Her blood pressure is 115/50, pulse of 87, respirations 26, temperature of 98.4 degrees. HEENT: Unremarkable. Pulmonary: She has inspiratory and expiratory rales with rhonchi. Cardiovascular: She has a regular rate and rhythm. Abdomen: Her abdomen is soft and nontender. OBJECTIVE DATA: Reveals a hemoglobin of 7.6 with hematocrit of 26.2 and a white count of 7.27. She has 57,000 platelets. Her PT is 18.7 with an INR of 1.44. Sodium is 139, potassium 3.2, chloride 98, CO2 38, BUN 24, creatinine 0.8 with a glucose of 277. Calcium is 7.9, phosphorus 2.8, magnesium 1.2, total bilirubin 0.96, AST 40, ALT 31, alkaline phosphatase 95, ammonia 48, CRP 60.98, total protein 5.0 and albumin 2.3. RECOMMENDATION: 1. I would continue the tube feedings as you are doing. She appears to be tolerating these well. 2. With regard to her lactulose, her ammonia is normal. I will reduce her lactulose to once a day in order to reduce her diarrhea. She will need to have her dose titrated based on her ammonia level and she has remained obtunded despite normalization of her ammonia level. Her CRP is 60.98. This is likely related to her pulmonary status. I will defer to the primary team for further management. 3. The patient has a hypomagnesemia and hypokalemia. I will defer to Dr. Wilson for further management. cc: MD Lois Rooney MD Russell T. Barr, MD
--- NOTE | 2018-05-12 23:08 | PROGRESS NOTE ---
DATE: 05/09/2018 SUBJECTIVE: According to the nurses, the patient has required placement of a rectal tube due to copious amounts of diarrhea. She remains obtunded but is tolerating her tube feedings. She continues to be agitated and restless. Although there have been no clinical signs of bleeding, the patient's hemoglobin dropped to 7.6. She was transfused overnight with 1 unit of packed red blood cells. PHYSICAL EXAMINATION: Vital Signs: Her blood pressure is 118/58, pulse 95, respirations 22, temperature of 98.9 degrees. Pulmonary: She has coarse breath sounds with bibasilar rales and diffuse rhonchi. Cardiovascular: Reveals regular rate and rhythm with no gallops or rubs. Abdomen: Soft and nontender. Skin: Because the patient was in the midst of a bath, I was able to visualize her skin on the posterior side of her body. There appears to be minimal breakdown. She has a rectal tube in place. OBJECTIVE DATA: Reveals a sodium of 143, potassium 3.3, chloride 99, CO2 39, BUN 24, creatinine 0.8 with a glucose of 222. Calcium is 8.2, total bilirubin 1.37, AST 40, ALT 32, alkaline phosphatase 120, total protein 5.7 and albumin 2.5. RECOMMENDATION: 1. Continue tube feedings. 2. Discontinue lactulose. I will resume the dose when she has 1 soft bowel movement. I would titrate the dose to 1 to 2 soft bowel movements per day. It is important to avoid additional diarrhea to prevent skin breakdown. 3. The patient does not have a repeat CBC today. I recommend that we recheck CBC in the morning pending any changes in her clinical status. At this time, she is clinically stable. cc: MD Juan Diego Hook MD Khurshid Yousuf, MD
[2018-05-13] MEDS: HUMULIN R SUBQ SCH ×4 (00:09→17:35)
--- NOTE | 2018-05-13 00:46 | PROGRESS NOTE ---
DATE: 05/08/2018 SUBJECTIVE: The patient remains obtunded. She is having diarrhea, but is tolerating her tube feedings. Her ammonia level continues to improve. Her denies questions, but remains extremely concerned about her condition as her agitation has persisted. OBJECTIVE: General: On exam, she is agitated but in no acute distress. Vital Signs: Her blood pressure is 1. INCOMPLETE REPORT - DICTATION ENDS HERE cc: MD Juan Diego Hook MD
[2018-05-13] MEDS: ALBUTEROL NEB INH SCH ×4 (03:20→21:15)
[2018-05-13] MEDS: CLINDAMYCIN 300 MG in NS 50 ML IV SCH ×3 (04:03→20:29)
[2018-05-13] MEDS: DILAUDID IV PRN ×5 (04:03→20:37)
[2018-05-13] MEDS: HALDOL IV PRN ×4 (04:03→20:36)
[2018-05-13 05:42] LABS: AGAP 4; ALB/GLOB RATIO 0.7; ALBUMIN 2.6 g/dL (3.5-5.0); ALKALINE PHOSPHATASE 111 U/L (32-104); BUN 36 mg/dL (8-22); CHLORIDE 95 mmol/L (98-107); COSMO 294; CREATININE 0.7 mg/dL (0.5-0.9); ESTIMATED GFR > 60; GLUCOSE 241 mg/dL (70-104); GOT 44 U/L (10-30); GPT 30 U/L (10-36); POTASSIUM 4.9 mmol/L (3.5-5.1); SODIUM 139 mmol/L (136-145); TCO2 40 mmol/L (25-35); TOTAL PROTEIN 6.1 g/dL (6.3-8.3)
[2018-05-13] MEDS: MAXIPIME 1 GM in NS 50 ML IV SCH ×2 (07:03→16:53)
[2018-05-13] MEDS: SYNTHROID PO SCH (07:03)
[2018-05-13] MEDS: ATIVAN IV PRN ×4 (07:21→20:35)
--- NOTE | 2018-05-13 07:31 | Diag Imaging Result Doc PS360 ---
CHEST-PORTABLE - 05/13/2018 INDICATION: respiratory failure COMPARISON: 05/12/2018 FINDINGS: Stable nasogastric tube in good position. Lung volumes are very low. Stable central infiltrates bilaterally. Heart size remains normal. IMPRESSION: No significant change from prior. Electronically signed by Alfonso Stark 05/13/2018 7:29 AM
[2018-05-13] MEDS: LACTULOSE PO SCH (08:35)
[2018-05-13] MEDS: ELDERTONIC NG SCH (08:36)
[2018-05-13] MEDS: HUMULIN N SUBQ SCH ×2 (08:36→20:30)
[2018-05-13] MEDS: XIFAXAN PO SCH ×2 (08:36→20:30)
[2018-05-13] MEDS: ALDACTONE GT SCH ×2 (08:36→21:00)
[2018-05-13] MEDS: ZINC SULFATE PO SCH ×2 (08:36→20:30)
[2018-05-13] MEDS: PROTONIX IV SCH ×2 (08:37→20:30)
[2018-05-13] MEDS ORDERED: LASIX IV ONE (10:11)
[2018-05-13] MEDS: D5W IV SCH (10:23)
[2018-05-13] MEDS: MAGNESIUM SULFATE IV SCH (10:23)
--- NOTE | 2018-05-13 10:51 | PROGRESS NOTE ---
DATE: 05/13/2018 SUBJECTIVE: The patient's chart was reviewed. In summary, the patient was admitted on 04/30/2018 with alteration of mental status. Ultimately, the patient was diagnosed with a urinary tract infection with associated bacteremia/sepsis. E. coli was grown from cultures which revealed a pansensitive organism, with the exception of Bactrim. The patient was treated with broad-spectrum antibiotics. Unfortunately, despite this, her multiple medical conditions including nonalcoholic cirrhosis inhibited significant improvement. The patient has continued to exhibit alteration of mental status with frequent agitation. She has required multiple medications to manage this. She has had multiple consultants including GI, neurology, and pulmonary. At the present time, the patient is being treated for an underlying pneumonia. Hepatic encephalopathy is also treated with aggressive management. This morning, the patient's sister and son are at bedside. She remains obtunded. Her tube feedings have been held secondary to a high residual. There has been no evidence of fevers, chills, nausea, or vomiting. She does continue to take very shallow breaths. OBJECTIVE: Vital Signs: T-max 98.1 degrees, heart rate 85 to 92, respirations 16 to 30, blood pressure 102-149/54-66. General: Chronically ill-appearing. Shallow breathing. Cardiovascular: Regular rate and rhythm. No significant murmurs, rubs, or gallops. Pulmonary: Rhonchi bilaterally with shallow breathing. Abdomen: Soft. Slightly distended. Nontender. Positive bowel sounds. Extremities: No significant clubbing or cyanosis. There is 1+ lower extremity edema bilaterally. Dermatologic: Evaluation reveals no evidence of rash. Laboratory Data: None. ASSESSMENT AND PLAN: 1. Urinary tract infection with associated sepsis-cultures grew Escherichia coli. Patient has been treated appropriately. We will continue current antibiotic regimen. 2. Hospital-acquired pneumonia-patient is on hospital day #8 of clindamycin and cefepime. We will continue aspiration precautions. She has demonstrated no evidence of a fever. We will treat patient's respiratory status as described below. 3. Respiratory failure-this likely is a consequence of underlying pneumonia and volume overload state. We will continue treatment of pneumonia as described above. We will encourage aspiration precautions. We will provide a dose of Lasix today. 4. Delirium-this likely is multifactorial. Unfortunately, it has become increasingly difficult to maintain adequate control of delirium without sedation. We will continue her current medical regimen. 5. Nonalcoholic cirrhosis with associated encephalopathy-we will continue patient's current regimen per gastroenterology consultation. We will check an ammonia level in the morning. We will remain aware that this likely is a major contributor to her decompensation. 6. Diabetes-we will continue patient on Lantus plus sliding-scale insulin. 7. Profound deconditioning-we will remain aware. 8. Prognosis-I had a long discussion with patient's sister and son today. At this point, I voiced my grave concern that she will be unable to recover from her current illnesses. Assured that we will continue aggressive management for now, although with time, we may need to consider a more palliative approach. The patient's son and sister voiced good understanding. I expressed to them that with her compromised breathing, her passing could occur in the near future. 9. Disposition-at this point, patient continues to require long term care in a hospital setting. Because of her significant needs and agitation, I do feel the intensive care unit setting remains most appropriate. cc: MD Juan Diego Blackwell MD
--- NOTE | 2018-05-13 19:19 | PROGRESS NOTE ---
DATE: 05/13/2018 SUBJECTIVE: She is resting in bed. She is nonverbal. She does not respond to any verbal commands. According to the nursing staff, the patient has been moving her bowels. We started her on lactulose last night. She has started tube feeds. No blood in the stools noted. No fevers noted. OBJECTIVE: Vital signs: Temperature 98.2 degrees, pulse of 88, respiratory 20, blood pressure 109/57, saturating 95% on Ventimask. Body weight of 201 pounds 1.6 ounces. BMI of 39.3 kg/m2. General: The patient is moderately nourished, lying in bed, currently on a face mask. HEENT: Positive pallor. Face mask in place. No icterus. Neck: Supple. Abdomen: Protuberant. Mild distention noted, same as yesterday. No rebound or guarding. Extremities: No cyanosis, clubbing. She is in restraints. Neurologic: She is nonresponsive. She does not follow any commands, and she is nonverbal. LABORATORIES: Today sodium of 139, potassium 4.9, chloride 95, bicarb of 49, anion gap of 4, BUN of 36, creatinine of 0.7, glucose of 241. Calcium is 9.0. Total bilirubin is 1.20, AST 44, ALT 30, alkaline phosphatase 111, total protein 6.1, albumin of 2.6. Ammonia yesterday of 56. We will recheck ammonia tomorrow. IMAGING STUDIES: Her chest x-ray done today showed stable nasogastric tube in good position. Lung volumes are very low. Stable central infiltrates bilaterally. Heart size is normal. IMPRESSION AND PLAN: 1. Nonalcoholic steatohepatitis complicated with cirrhosis with hepatic encephalopathy, thrombocytopenia, hyperammonemia, mildly elevated liver enzymes, hypoalbuminemia, and coagulopathy. We will continue with supportive care. We have started her on lactulose 30 mL once daily. We will check ammonia tomorrow. We will continue on Xifaxan 550 mg p.o. b.i.d. We will continue on free fluid restriction to less than 1.5 to 2 L per 24 hours. Keep her on a low-sodium diet. 2. Anemia. Continuing to watch for now. We have started her on multivitamin once daily. 3. Urinary tract infection and pneumonia. She is on clindamycin and cefepime. 4. Encephalopathy. She is on Ativan as needed. She is in restraints. 5. Hypothyroidism. She is on Synthroid. 6. Gastrointestinal prophylaxis with PPIs. 7. Ascites. We will watch for now. 8. She will continue on spironolactone, and she did receive a dose of Lasix today. The above plan was discussed with the patient's family at bedside and all questions answered. Please call with any further questions. cc: MD Juan Diego Harmon MD Khurshid Yousuf, MD
[2018-05-14] MEDS: HUMULIN R SUBQ SCH ×3 (00:15→13:03)
[2018-05-14] MEDS: DILAUDID IV PRN ×4 (01:34→16:43)
[2018-05-14] MEDS: ATIVAN IV PRN ×4 (01:35→16:43)
[2018-05-14] MEDS: HALDOL IV PRN ×4 (01:35→16:43)
[2018-05-14] MEDS: ALBUTEROL NEB INH SCH ×3 (03:12→15:58)
[2018-05-14] MEDS: MAXIPIME 1 GM in NS 50 ML IV SCH (04:08)
[2018-05-14] MEDS: CLINDAMYCIN 300 MG in NS 50 ML IV SCH (04:16)
[2018-05-14] MEDS: SYNTHROID PO SCH (06:06)
--- NOTE | 2018-05-14 06:58 | Diag Imaging Result Doc PS360 ---
CHEST-PORTABLE - 05/14/2018 INDICATION: respiratory failure COMPARISON: 05/13/2018 FINDINGS: Stable nasogastric tube in good position. No significant change in the ill-defined bilateral diffuse infiltrates. No pneumothorax or significant pleural effusion. Heart size remains top normal. IMPRESSION: No change from prior. Electronically signed by Alfonso Stark 05/14/2018 6:56 AM
[2018-05-14 07:05] LABS: AGAP 5; ALB/GLOB RATIO 0.9; ALBUMIN 2.8 g/dL (3.5-5.0); ALKALINE PHOSPHATASE 104 U/L (32-104); BUN 40 mg/dL (8-22); CHLORIDE 95 mmol/L (98-107); COSMO 291; CREATININE 0.8 mg/dL (0.5-0.9); ESTIMATED GFR > 60; GLUCOSE 202 mg/dL (70-104); GOT 36 U/L (10-30); GPT 27 U/L (10-36); POTASSIUM 5.2 mmol/L (3.5-5.1); SODIUM 138 mmol/L (136-145); TCO2 38 mmol/L (25-35); TOTAL BILIRUBIN 1.11 mg/dL (0.20-1.00); TOTAL PROTEIN 5.9 g/dL (6.3-8.3)
[2018-05-14] MEDS: D5W IV SCH (07:47)
[2018-05-14] MEDS: MAGNESIUM SULFATE IV SCH (07:47)
[2018-05-14] MEDS: ELDERTONIC NG SCH ×2 (07:47→09:18)
[2018-05-14] MEDS: ZINC SULFATE PO SCH ×2 (07:48→09:19)
[2018-05-14] MEDS: ALDACTONE GT SCH ×2 (07:49→09:18)
[2018-05-14] MEDS: HUMULIN N SUBQ SCH (07:50)
[2018-05-14] MEDS: LACTULOSE PO SCH ×2 (07:50→09:18)
[2018-05-14] MEDS: XIFAXAN PO SCH ×2 (07:50→09:19)
[2018-05-14] MEDS: PROTONIX IV SCH ×2 (07:51→09:19)
[2018-05-14 08:08] LABS: BASO# 0.08 X1000 (0.0-0.2); EOS# 0.16 X1000 (0.0-0.7); HEMATOCRIT 29.5 % (37.0-47.0); HEMOGLOBIN 8.3 g/dL (12.0-16.0); IMM GRAN# 0.09 X1000 (0.0-0.04); IMM GRAN% 1.1 % (0.0-0.5); LYMPH# 0.65 X1000 (1.2-3.4); LYMPH% 8.1 % (20.5-51.1); MCH 27.9 PG (27-31); MCHC 28.1 g/dL (33-37); MCV 99.3 FL (81-99); MONO# 0.78 X1000 (0.11-0.59); MONO% 9.8 % (1.7-9.3); MPV 12.4 FL (7.4-10.4); NEUT# 6.22 X1000 (1.4-6.5); PLT 105 X1000 (130-400); RBC 2.97 XMIL (4.2-5.4); RDW 25.5 % (11.5-14.5); WBC 7.98 X1000 (4.8-10.8)
[2018-05-14 08:20] LABS: ANISOCYTOSIS 2+; HYPOCHROM 1+; LYMPHS 8 % (21-51); MONO 2 % (1-9); SEGS 90 % (42-75)
[2018-05-14] MEDS ORDERED: HUMULIN N SUBQ SCH (08:43)
[2018-05-14] MEDS ORDERED: LACRI-LUBE OPH OINT BOTH EYES SCH (08:45)
[2018-05-14 17:01] VITALS: BP 114/46
--- NOTE | 2018-05-14 17:22 | PROGRESS NOTE ---
DATE: 05/14/2018 SUBJECTIVE: Resting in bed. She was seen by Dr. Wilson and after speaking to the family Dr. Wilson and the family decided to go for inpatient hospice. I spoke to Dr. Wilson and the patient's son at bedside.Vitals: Temperature 98.3 degrees, pulse of 85, respiratory 22, blood pressure 123/46 saturating 98% on Ventimask 50% FiO2. General appearance: She is lying in bed with a Ventimask at times having difficulty with breathing. Physical exam was not performed. LABS: Which showed hemoglobin and hematocrit of 8.3 and 29.5, white count 7.9 and platelet count of 105,000, sodium 130, potassium 5.2, chloride 95, bicarb 30, anion gap 5, BUN of 40, creatinine 0.8, glucose of 202, calcium 9, total bilirubin is 1.11, AST 36, ALT 27, alkaline phosphatase 104, total protein is 5.9, albumin of 2.8, ammonia of 60. Chest x-ray done today showed no change from prior. IMPRESSION AND PLAN: 1. Cirrhosis complicated with hepatic encephalopathy, thrombocytopenia, hyperammonemia, mildly elevated liver enzymes, hypoalbuminemia and coagulopathy. Will continue current plan of care. I have increased the lactulose to twice daily. 2. Anemia. Continue to watch for now. 3. Urinary tract infection and pneumonia aware, she is on antibiotics. 4. Gastrointestinal prophylaxis PPIs. DISPOSITION: The patient is being referred for inpatient hospice. I have reviewed our plan with Dr. Wilson and all questions were answered. Please call us with any further questions. We will sign off at this time. I also spoke to patient's son at bedside and offered assistance in case of any need. cc: MD Juan Diego Harmon MD
[2018-05-14] MEDS ORDERED: HALDOL IV PRN (19:23)
[2018-05-14] MEDS ORDERED: ATIVAN IV PRN (19:23)
[2018-05-14] MEDS ORDERED: ATROPINE 1 % OPHTH SOLN SL PRN (19:27)
[2018-05-14] MEDS ORDERED: MISC. PHARMACY COMMUNICATION SCH (19:30)
[2018-05-14] MEDS ORDERED: LACTULOSE PO SCH (21:00)
--- NOTE | 2018-06-02 16:09 | DISCHARGE SUMMARY ---
ADMISSION DATE: 04/30/2018 DISCHARGE DATE: 05/14/2018 DATE OF : 05/17/2018. FINAL DIAGNOSES: 1. E coli septicemia probably from the urinary tract. 2. Hospital acquired pneumonia. Gram negative suspected. 3. Cirrhosis with chronic encephalopathy due to #4. 4. Nonalcoholic steatohepatitis. 5. Type 2 diabetes mellitus. 6. Metastatic breast cancer. 7. Persistent delirium. PRESENT ILLNESS: Ms. Barillas is a 67-year-old woman with a long history of type 2 diabetes mellitus with approximately a two year diagnosis of cirrhosis due to nonalcoholic steatohepatitis. She was brought to the emergency room by her because of a temperature of 101 degrees and a chill the previous night. In the emergency room, she was somewhat lethargic. Her hardboard press operator is iWl Nichols MD. She has had banding and multiple esophageal varices. She has a history of intermittent confusion and disorientation with elevated ammonia levels. At home, she takes daily lactulose and Xifaxan. She also has a history of left mastectomy in 2009 with positive lymph nodes. Several years later, she had a recurrence of her mediastinal nodes and neck lymph nodes. She continues taking Perceptin intravenously every three weeks. PHYSICAL EXAMINATION: Revealed a lethargic, elderly woman who responds to questions but falls back asleep quickly. Neck was supple without adenopathy or venous distention. Lungs were clear. Cardiac exam was regular rate and rhythm. Abdomen was soft and nontender without an obvious fluid wave. LABORATORY: White blood count is 4,900, creatinine was 1.9 which is almost double her baseline, bilirubin 1.83, albumin 2.9, protime 22.6 seconds. HOSPITAL COURSE: She was initially treated in the emergency room with intravenous Rocephin and intravenous fluids. Her blood pressure did not improve, and she required intravenous Candelario- Synephrine and albumin. She was admitted to the ICU and Dr. Nichols was consulted. Urine cultures and blood cultures both grew e coli sensitive to all antibiotics. Despite appropriate antibiotics, she remained in critical condition with low blood pressure for several days. Her creatinine increased to 2.5 and then began to decrease. She remained quite obtunded. Her initial ammonia levels were quite high. An N/G tube was placed to deliver her lactulose and Xifaxan as she was unable to swallow. She was followed by Dr. Nichols and Dr. Marquez. On 05/06/2018, she was felt to have respiratory failure, and Dr. Bernstein was consulted for pulmonary assessment. He felt that she had hospital acquired gram negative pneumonia and expanded her antibiotic coverage. Her minimal responsiveness and agitation as well as combativeness continued, and she required multiple doses of Haldol, Ativan and Dilaudid. On 05/14/2018, her family elected to change her to comfort care only and signed a no code order and agreed to inpatient hospice care. She was transferred to the floor where she peacefully on 05/17/2018. cc: Juan Diego Wilson MD
== END 2018-05-14 19:41 | disposition hospice, inpatient (51) | DRG 871 ==
LOC: ED 12:56 → EDIPHOLD 14:50 → ICU 21:39 → 3N 05-14 17:07
PROVIDERS: ADMIT Internal Medicine; ATTEND Internal Medicine
CPT/HCPCS: 36430; 71010; 71020; 71045; 71046; 74000; 74018; 76770; 80048; 80053; 80069; 81001; 82009; 82140; 82570; 82805; 82948; 83605; 83735; 84100; 84156; 84300; 85025; 85610; 85730; 86140; 86850; 86900; 86901; 86920; 87040; 87077; 87088; 87186; 87205; 87275; 87276; 87324; 87804; 94640; 94660; 94761; 95816; 96361; 96365; 96366; 96375; 97163; 97530; 99285; A9270; C9113; J0692; J0696; J1170; J1630; J1644; J1940; J1956; J2060; J2370; J2930; J3430; J3475; J3486; J7040; J7050; J7060; J7070; P9016; P9017; P9047; S0077; S0164; XXXXX